=== PATIENT | female | born 1990 | race Caucasian/White ===

== ENCOUNTER 2020-03-28 13:25 | Emergency (ER) | payer SELFPAY ==
[~2020-03-28] VITALS: Ht 149 cm; Wt 88.0 kg
[~2020-03-28 13:25] MED LIST: ACHD5005 PO; CRS350T PO; CTLP20T PO; CYCL10TA9 PO; IBUPROFEN; METR500T PO; NAPR-243 PO; PHEN200T16 PO; SULF1TAB34 PO; TRM50T PO; TYLENOL
[2020-03-28] MEDS ORDERED: NS IV 1000 ML 1,000 ML IV SCH (14:00)
--- NOTE | 2020-03-28 14:09 | ED Abdominal Pain ---
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 Pt is 6 wks , and sees Dr. Hilliard OBGYN. Last serum HCG Saturday approx 10,116 and not trending up consistently. Also reports diff urinating. Sepsis Screen: No Definite Risk History of Present Illness Date Seen by Provider: March 28, 2020 Time Seen by Provider: 13:50 Initial Comments 29-year-old female presents for acute abdominal pain that began at approximately noon today. She tried to call her OB office that they were at [facility]. She presented here because the pain was not improving. She reports lower abdominal cramping, no vaginal discharge or bleeding. She is approximately [address] Hilliard, LMP was 12/29/19. She had no cycle and took 2 rounds of Clomid. He has been watching her Quant HCG, she was due for labs tomorrow. No BM for 2 days, constipation from taking Vitamin, uses Stool Softener. Had mild nausea today, no vomiting. Unsure of blood type, no previous miscarriages. Timing/Duration: 1-3 Hours Severity/Quality: Moderate Location: Suprapubic Radiation: No Radiation Associated Symptoms: Denies Symptoms Allergies and Home Medications Allergies Coded Allergies: No Known Drug Allergies (Unverified , 10/07/09) Home Medications Citalopram Hydrobromide 20 Mg Tablet, 1 EACH PO DAILY, (Reported) Cyclobenzaprine Hcl 10 Mg Tablet, 1 EACH PO Q8HR PRN Prescribed by: JENNIFER DEAN on 10/19/12 173 Hydrocodone Bit/Acetaminophen 1 Each Tablet, 1-2 EACH PO Q6H PRN Prescribed by: JENNIFER DEAN on 10/19/12 173 Naproxen 500 Mg Tablet, 1 EACH PO BID PRN Prescribed by: JENNIFER DEAN on 10/19/12 1738 Tramadol Hcl 50 Mg Tab, 50 MG PO Q4-6HOURS PRN FOR PAIN Prescribed by: JANIA TAMAYO on 10/23/12 1750 Patient Home Medication List Home Medication List Reviewed: Yes Review of Systems Review of Systems Constitutional: no symptoms reported, see HPI Gastrointestinal: See HPI, Abdominal Pain, Nausea All Other Systems Reviewed Negative Unless Noted: Yes Past Qfmsfyn-Eebaum-Lnwznj Hx Past Med/Social Hx: Reviewed Nursing Past Med/Soc Hx Patient Social History Alcohol Use: Denies Use Recreational Drug Use: No Smoking Status: Never a Smoker Recent Foreign Travel: No Contact w/Someone Who Travel: No Recent Infectious Disease Expo: No Recent Hopitalizations: No Physical Abuse: No Sexual Abuse: No Mistreated: No Fear: No Seasonal Allergies Seasonal Allergies: No Past Medical History Surgeries: No Respiratory: No Cardiac: No Neurological: No : Yes Last Menstrual Period: Dec 29, 2019 Hx : 1 Hx Para: 0 Hx Total # of Abortions (Sp): 0 Sexually Transmitted Disease: No HIV/AIDS: No Genitourinary: No Gastrointestinal: No Musculoskeletal: No Endocrine: No HEENT: No Cancer: No Psychosocial: No Integumentary: No Blood Disorders: No Physical Exam Vital Signs Vital Signs - First Documented 03/28/20 13:45 Temp 36.8 Pulse 101 Resp 18 B/P (MAP) 128/78 (95) Pulse Ox 100 Capillary Refill : Less Than 3 Seconds Height/Weight/BMI Height: '" Weight: lbs. oz. kg; 39.00 BMI Method:Stated General Appearance: WD/WN, no apparent distress Neck: non-tender, full range of motion, supple, normal inspection Respiratory: chest non-tender, lungs clear, normal breath sounds Cardiovascular: normal peripheral pulses, regular rate, rhythm Gastrointestinal: normal bowel sounds, non tender, soft; No distended, No guarding, No rebound; tenderness; No hernia, No mass Extremities: normal range of motion, non-tender, normal inspection, no calf tenderness, normal capillary refill Back: normal inspection, no CVA tenderness, no vertebral tenderness Neurologic/Psychiatric: no motor/sensory deficits, alert, normal mood/affect, oriented x 3 Skin: normal color, warm/dry Progress/Results/Core Measures Results/Orders Lab Results Laboratory Tests Test 03/28/20 14:23 Range/Units White Blood Count 10.3 4.3-11.0 10^3/uL Red Blood Count 4.53 4.35-5.85 10^6/uL Hemoglobin 13.7 11.5-16.0 G/DL Hematocrit 40 35-52 % Mean Corpuscular Volume 87 80-99 FL Mean Corpuscular Hemoglobin 30 25-34 PG Mean Corpuscular Hemoglobin Concent 35 32-36 G/DL Red Cell Distribution Width 12.8 10.0-14.5 % Platelet Count 301 130-400 10^3/uL Mean Platelet Volume 10.3 7.4-10.4 FL Neutrophils (%) (Auto) 74 42-75 % Lymphocytes (%) (Auto) 19 12-44 % Monocytes (%) (Auto) 6 0-12 % Eosinophils (%) (Auto) 1 0-10 % Basophils (%) (Auto) 0 0-10 % Neutrophils # (Auto) 7.6 1.8-7.8 X 10^3 Lymphocytes # (Auto) 1.9 1.0-4.0 X 10^3 Monocytes # (Auto) 0.6 0.0-1.0 X 10^3 Eosinophils # (Auto) 0.1 0.0-0.3 10^3/uL Basophils # (Auto) 0.0 0.0-0.1 10^3/uL Urine Color YELLOW Urine Clarity CLEAR Urine pH 5.5 5-9 Urine Specific [place] >=1.030 1.016-1.022 Urine Protein NEGATIVE NEGATIVE Urine Glucose (UA) NEGATIVE NEGATIVE Urine Ketones NEGATIVE NEGATIVE Urine Nitrite NEGATIVE NEGATIVE Urine Bilirubin NEGATIVE NEGATIVE Urine Urobilinogen 0.2 < = 1.0 MG/DL Urine Leukocyte Esterase NEGATIVE NEGATIVE Urine RBC (Auto) 1+ H NEGATIVE Urine RBC 2-5 H /HPF Urine WBC 0-2 /HPF Urine Squamous Epithelial Cells 2-5 /HPF Urine Crystals NONE /LPF Urine Bacteria FEW H /HPF Urine Casts NONE /LPF Urine Mucus NEGATIVE /LPF Urine Culture Indicated NO Sodium Level 137 135-145 MMOL/L Potassium Level 3.8 3.6-5.0 MMOL/L Chloride Level 107 98-107 MMOL/L Carbon Dioxide Level 19 L 21-32 MMOL/L Anion Gap 11 5-14 MMOL/L Blood Urea Nitrogen 8 7-18 MG/DL Creatinine 0.83 0.60-1.30 MG/DL Estimat Glomerular Filtration Rate > 60 BUN/Creatinine Ratio 10 Glucose Level 118 H 70-105 MG/DL Calcium Level 9.3 8.5-10.1 MG/DL Corrected Calcium 9.2 8.5-10.1 MG/DL Total Bilirubin 0.4 0.1-1.0 MG/DL Aspartate Amino Transf (AST/SGOT) 19 5-34 U/L Alanine Aminotransferase (ALT/SGPT) 12 0-55 U/L Alkaline Phosphatase 56 40-136 U/L Total Protein 7.4 6.4-8.2 GM/DL Albumin 4.1 3.2-4.5 GM/DL Human Chorionic Gonadotropin, Quant 9503 H <5 MIU/ML My Orders Orders - HUMA ENGELP Ua Culture If Indicated (03/28/20 13:26) Urine Bedside (03/28/20 13:26) Cbc With Automated Diff (03/28/20 14:00) Comprehensive Metabolic Panel (03/28/20 14:00) Hcg,Quantitative (03/28/20 14:00) Ed Iv/Invasive Line Start (03/28/20 14:00) Ns Iv 1000 Ml (Sodium Chloride 0.9%) (03/28/20 14:00) Acetaminophen Tablet/Caplet (Tylenol T (03/28/20 14:56) Vital Signs/I&O 03/28/20 13:45 Temp 36.8 Pulse 101 Resp 18 B/P (MAP) 128/78 (95) Pulse Ox 100 Blood Pressure Mean: 95 Progress Progress Note : Time: 13:50 Progress Note Patient seen and evaluated, will obtain labs, normal saline 1 L per IV, and Tylenol 650 mg. 1420 Spoke with Rebecca, nurse at Dr. Mcclelland, will check labs, did not recommend US at this time. Last HCG 10,116 on 03/25/20. 1515 Spoke to Rebecca, updated on lowered HCG of 9,503. They will see her in the office tomorrow and plan further care Departure Impression Primary Impression: Threatened in first trimester Additional Impression: Abdominal pain Qualified Codes: R10.9 - Unspecified abdominal pain Disposition: 01 HOME, SELF-CARE Condition: Improved Departure-Patient Inst. Decision time for Depature: 15:30 Referrals: SELF,KHUSHBU SUMMERS (PCP/Family) Primary Care Physician Patient Instructions: Threatened Miscarriage (DC), Bleeding With (DC) Add. Discharge Instructions: Appt with Dr. Mcclelland 03/29/20 at 11:00 Rest and increase hydration. Diet as tolerated. You may take Tylenol 1000 mg every 6-8 hours as needed for pain. Return to the emergency department for new, urgent health care needs. All discharge instructions reviewed with patient and/or family. Voiced understa nding. Work/School Note: Work Release Form Date Seen in the Emergency Department: March 28, 2020 Restrictions: Need Release from Doctor Copy Copies To 1: ELZA HILLIARD AMY ARNP March 28, 2020 14:09
[2020-03-28 14:42] LABS: BILIRUBIN,URINE NEGATIVE (NEGATIVE); CLARITY,URINE CLEAR; COLOR,URINE YELLOW; GLUCOSE, URINE (UA) NEGATIVE (NEGATIVE); KETONES,URINE NEGATIVE (NEGATIVE); LEUKOCYTE ESTERASE ,URINE NEGATIVE (NEGATIVE); NITRITE,URINE NEGATIVE (NEGATIVE); PH,URINE 5.5 (5-9); PROTEIN,URINE NEGATIVE (NEGATIVE)
[2020-03-28 14:45] LABS: BASOPHILS % (AUTO) 0 % (0-10); EOSINOPHILS # (AUTO) 0.1 10^3/uL (0.0-0.3); EOSINOPHILS % (AUTO) 1 % (0-10); HEMATOCRIT 40 % (35-52); HEMOGLOBIN 13.7 G/DL (11.5-16.0); LYMPHOCYTES # (AUTO) 1.9 X 10^3 (1.0-4.0); LYMPHOCYTES % (AUTO) 19 % (12-44); MEAN CORPUSCULAR HEMOGLOBIN 30 PG (25-34); MEAN CORPUSCULAR HGB CONC 35 G/DL (32-36); MEAN CORPUSCULAR VOLUME 87 FL (80-99); MEAN PLATELET VOLUME 10.3 FL (7.4-10.4); MONOCYTES # (AUTO) 0.6 X 10^3 (0.0-1.0); MONOCYTES % (AUTO) 6 % (0-12); NEUTROPHILS # (AUTO) 7.6 X 10^3 (1.8-7.8); NEUTROPHILS % (AUTO) 74 % (42-75); PLATELET COUNT 301 10^3/uL (130-400); RED CELL DISTRIBUTION WIDTH 12.8 % (10.0-14.5); WHITE BLOOD COUNT 10.3 10^3/uL (4.3-11.0)
[2020-03-28 14:51] LABS: BACTERIA,URINE FEW /HPF; WBC,URINE 0-2 /HPF
[2020-03-28] MEDS ORDERED: ACETAMINOPHEN 325 MG TABLET PO STA (14:56)
[2020-03-28 15:02] LABS: ALANINE AMINOTRANSFERASE 12 U/L (0-55); ALBUMIN 4.1 GM/DL (3.2-4.5); ALKALINE PHOSPHATASE 56 U/L (40-136); BILIRUBIN,TOTAL 0.4 MG/DL (0.1-1.0); BUN/CREATININE RATIO 10; CALCIUM 9.3 MG/DL (8.5-10.1); CARBON DIOXIDE 19 MMOL/L (21-32); CHLORIDE 107 MMOL/L (98-107); CREATININE SERUM 0.83 MG/DL (0.60-1.30); GFR ESTIMATED > 60; GLUCOSE 118 MG/DL (70-105); POTASSIUM 3.8 MMOL/L (3.6-5.0); SODIUM 137 MMOL/L (135-145); TOTAL PROTEIN 7.4 GM/DL (6.4-8.2)
[2020-03-28 15:41] VITALS: BP 133/80
--- OUTSIDE RECORDS SUMMARY | 2020-03-28 15:59 | XMS REPORT ---
Author Author Nicole GARCIA Organization [facility] Address [address] [place] [address] Care Team Providers Care Public Safety Teacher Name Role Phone TRAY GARCIA Unavailable PROBLEMS Type Condition ICD9-CM Code WDV92-DF Code Onset Dates Condition S tatus SNOMED Code Problem Amenorrhea N91.2 Active 24553210 Problem Anovulation N97.0 Active 16810084 Problem Anxiety disorder, unspecified F41.9 Active 951076073 Problem Major depressive disorder, single episode, unspecified F32.9 Active 33485274 Problem Moderate major depression F32.1 Acti ve 158956 Problem Irregular menses N92.6 Active 801 55960 ALLERGIES No Information ENCOUNTERS Encounter Location Date Diagnosis [facility] [address] [id number] [place] [address] Jan, Cough R05 [facility] [address] [id number] [place] [address] Jan, [facility] [address] [place] [id number] [address] [phone] Jan, Fever, unspecified fever cau se R50.9 and Flu-like symptoms R68.89 [facility] [address] [id number] [address] [phone] Jan, [facility] [address] [facility] [id number] [address] [phone] Jan, [facility] [address] [id number] [address] [place] [phone] Jan, [facility] [address] [id number] [address] [place] [phone] 06 Jan, 2020 Moderate major depression F3 2.1 [facility] [address] [id number] [address] [place] [phone] 24 Dec, 2019 Anovulation N97.0 [facility] [address] [facility] [id number] [address] [place] [phone] 10 Dec, 2019 Moderate major depression F3 2.1 [facility] [address] [facility] [id number] [address] [place] [phone] 03 Dec, 2019 Amenorrhea N91.2 [facility] [address] [facility] [id number] [address] [place] [phone] Nov, Right ovarian cyst N83.201 [place] [address] [address] [facility] [id number] [address] [place] [phone] 14 Nov, 2019 Pelvic pain R10.2 ; Amenorrh ea N91.2 and Well woman exam Z01.419 [place] [address] [address] [facility] [id number] [address] [place] [phone] 14 Nov, 2019 Pelvic pain R10.2 [facility] [address] [id number] [address] [place] [phone] Nov, Moderate major depression F3 2.1 [place] [address] [address] [facility] [id number] [address] [place] [phone] Nov, Well woman exam Z01.419 ; Pe lvic pain R10.2 and Amenorrhea N91.2 [place] [address] [address] [facility] [id number] [address] [place] [phone] Oct, Moderate major depression F3 2.1 and Anxiety disorder, unspecified F41.9 [facility] [address] [facility] [id number] [address] [place] [phone] Sep, Moderate major depression F3 2.1 [place] [address] [address] [facility] [id number] [address] [place] [phone] Aug, Moderate major depression F3 2.1 [facility] [address] [facility] [id number] [address] [place] [phone] Aug, [facility] [address] [facility] [id number] [address] [place] [phone] Aug, Viral gastroenteritis A08.4 [place] [address] [address] [place] [id number] [address] [place] [phone] Jul, Moderate major depression F3 2.1 [place] [address] [address] [place] [id number] [address] [place] [phone] May, Moderate major depression F3 2.1 [place] [address] [place] [id number] [place] [phone] Apr, Moderate major depression F3 2.1 [place] [address] [place] [id number] [place] [phone] Apr, Major depressive disorder, s hodan episode, unspecified F32.9 and Anxiety disorder, unspecified F41.9 [place] [address] [place] [id number] [address] [place] [phone] Feb, Moderate major depression F3 2.1 [place] [address] [place] [id number] [address] [place] [phone] Oct, [place] [address] [place] [id number] [place] [phone] Oct, Moderate major depression F3 2.1 [facility] [place] [address] [id number] [address] [place] [phone] Sep, Acute cystitis N30.00 [facility] [place] [address] [id number] [address] [place] [phone] Aug, Dysuria R30.0 and Candidiasi s of female genitalia B37.3 [facility] [place] [address] [place] [id number] [address] [place] [phone] Nov, Acute sinusitis, recurrence not specified, unspecified location J01.90 [place] [address] [address] [place] [id number] [address] [place] [phone] Oct, Major depressive disorder, s hodan episode, unspecified F32.9 and Anxiety disorder, unspecified F41.9 [facility] [address] [facility] [id number] [address] [place] [phone] Jun, Major depressive disorder, s hodan episode, unspecified F32.9 and Anxiety disorder, unspecified F41.9 [facility] [address] [facility] [id number] [address] [place] [phone] March, Anxiety disorder, unspecifie d F41.9 and Muscle spasm of back M62.830 [facility] [address] [id number] [address] [place] [phone] Jan, Abscess and cellulitis L03.9 0 [place] [address] [address] [facility] [id number] [address] [place] [phone] Dec, Anxiety disorder, unspecifie d F41.9 and Major depressive disorder, single episode, unspecified F32.9 [place] [address] [address] [facility] [id number] [address] [place] [phone] Nov, Major depressive disorder, s hodan episode, unspecified F32.9 [facility] [address] [facility] [id number] [address] [place] [phone] Nov, Pneumonia J18.9 [place] [address] [facility] [id number] [address] [place] [phone] Oct, Anxiety disorder, unspecifie d F41.9 and Major depressive disorder, single episode, unspecified F32.9 [place] [address] [address] [facility] [id number] [address] [place] [phone] Oct, Major depressive disorder, s hodan episode, unspecified F32.9 and Anxiety disorder, unspecified F41.9 [place] [address] [address] [facility] [id number] [address] [place] [phone] Oct, Major depressive disorder, s hodan episode, unspecified F32.9 and Anxiety disorder, unspecified F41.9 [place] [address] [address] [facility] [id number] [address] [place] [phone] Oct, Major depressive disorder, s hodan episode, unspecified F32.9 and Anxiety disorder, unspecified F41.9 [facility] [address] [facility] [id number] [address] [place] [phone] Sep, Anxiety disorder, unspecifie d F41.9 [facility] [address] [facility] [id number] [address] [place] [phone] Aug, Sore throat J02.9 [facility] [address] [facility] [id number] [address] [place] [phone] Aug, Anxiety disorder, unspecifie d F41.9 [facility] [address] [facility] [id number] [address] [place] [phone] Aug, Major depressive disorder, s hodan episode, unspecified F32.9 and Anxiety disorder, unspecified F41.9 [facility] [address] [facility] [id number] [address] [place] [phone] Aug, Major depressive disorder, s hodan episode, unspecified F32.9 [facility] [address] [facility] [id number] [address] [place] [phone] Jul, Depressive disorder, not els ewhere classified 311 and Anxiety state, unspecified 300.00 [facility] [address] [facility] [id number] [address] [place] [phone] Jul, Depressive disorder, not els ewhere classified 311 and Anxiety state, unspecified 300.00 [facility] [address] [facility] [id number] [address] [place] [phone] Jul, [facility] [address] [facility] [id number] [address] [place] [phone] Jul, [facility] [address] [facility] [id number] [address] [place] [phone] Jul, [facility] [address] [facility] [id number] [address] [place] [phone] Jun, [facility] [address] [id number] [address] [place] [phone] Jun, Depressive disorder, not els ewhere classified 311 and Anxiety state, unspecified 300.00 [facility] [address] [id number] [address] [place] [phone] May, Anxiety state, unspecified 3 00.00 [facility] [address] [id number] [address] [place] [phone] May, Anxiety state, unspecified 3 00.00 [facility] [address] [id number] [address] [place] [phone] Apr, [facility] [address] [id number] [address] [place] [phone] Apr, Anxiety state 300.00 [facility] [address] [facility] [id number] [address] [place] [phone] Apr, Anxiety state, unspecified 3 00.00 [facility] [address] [id number] [address] [place] [id number] Apr, Pharyngitis 462 and Oral thr ush 112.0 [facility] [address] [id number] [address] [place] [phone] Feb, [facility] [address] [facility] [id number] [address] [place] [phone] Feb, [facility] [address] [id number] [address] [place] [phone] Jun, [facility] [address] [id number] [address] [place] [phone] Jun, [facility] [address] [facility] [id number] [address] [place] [phone] Nov, [facility] [address] [id number] [address] [place] [phone] Nov, [facility] [address] [facility] [id number] [address] [place] [phone] Nov, [facility] [address] [id number] [address] [place] [address], [place] [phone] Nov, [facility] [address] [id number] [address] [place] [address], [place] [phone] Oct, [facility] [address] [id number] [address] [place] [address], [place] [phone] Oct, [facility] [address] [id number] [address] [place] [address], [place] [phone] Oct, [facility] [address] [id number] [address] [place] [address], [place] [id number] Oct, [facility] [address] [id number] [address] [place] [address], [place] [phone] Oct, [facility] [address] [id number] [address] [place] [address], [place] [phone] Oct, [facility] [address] [id number] [address] [place] [address], [place] [id number] Feb, [facility] [address] [id number] [address] [place] [address], [place] [phone] Jan, [facility] [address] [id number] [address] [place] [address], [place] [phone] Jan, [facility] [address] [id number] [address] [place] [address], [place] [phone] Dec, [facility] [address] [id number] [address] [place] [address], [place] [id number] Aug, [facility] [address] [id number] [address] [place] [address], [place] [phone] Jun, [facility] [address] [id number] [address] [place] [address], [place] [id number] Feb, [facility] [address] [id number] [address] [place] [address], [place] [phone] Jan, [facility] [address] [id number] [address] [phone] Jan, [facility] [address] [id number] [address] [phone] Dec, [facility] [address] [id number] [address] [place] [phone] Oct, [facility] [address] [id number] [address] [place] [phone] Jun, [facility] [address] [id number] [address] [place] [phone] Aug, [facility] [address] [id number] [address] [phone] Jul, [facility] [address] [id number] [address] [phone] Jun, [facility] [address] [id number] [address] [phone] Apr, [facility] [address] [id number] [address] [phone] Sep, [facility] [address] [id number] [address] [place] [phone] Jan, IMMUNIZATIONS No Known Immunizations SOCIAL HISTORY Never Assessed REASON FOR VISIT PLAN OF CARE VITAL SIGNS MEDICATIONS Unknown Medications RESULTS No Results PROCEDURES No Known procedures INSTRUCTIONS MEDICATIONS ADMINISTERED No Known Medications MEDICAL (GENERAL) HISTORY Type Description Date Medical History PCOS (Polycystic Ovary Syndrome) Medical History depression Medical History anxiety Medical History attention deficit hyperactivity disorder Medical History wisdom teeth removal Surgical History wisdom teeth removal 02/2019
--- OUTSIDE RECORDS SUMMARY | 2020-03-28 16:00 | XMS REPORT ---
Author Author Nicole Enrique Organization [facility] Address [address] [place] [address] Care Team Providers Care Paper Wood Cutter Name Role Phone almaCECEKIMBERLEE RYAN Unavailable PROBLEMS Type Condition ICD9-CM Code XKY23-QO Code Onset Dates Condition S tatus SNOMED Code Problem Major depressive disorder, single episode, unspecified F32.9 Active 37987286 Problem Anxiety disorder, unspecified F41.9 Active [id number] ALLERGIES No Known Allergies ENCOUNTERS Encounter Location Date Diagnosis [facility] [address] [address] Sep, Acute cystitis N30.00 [facility] [address] [address] Aug, Dysuria R30.0 and Candidiasi s of female genitalia B37.3 [facility] [address] [address] Nov, Acute sinusitis, recurrence not specified, unspecified location J01.90 [place] [address] [address] Oct, Major depressive disorder, s hodan episode, unspecified F32.9 and Anxiety disorder, unspecified F41.9 [place] [address] [address] [place] [id number] [address] [place] [address] Jun, Major depressive disorder, s hodan episode, unspecified F32.9 and Anxiety disorder, unspecified F41.9 [place] [address] [address] [place] [id number] [address] [place] [address] March, Anxiety disorder, unspecifie d F41.9 and Muscle spasm of back M62.830 [facility] [address] [facility] [id number] [address] [place] [address] Jan, Abscess and cellulitis L03.9 0 [facility] [address] [facility] [id number] [address] [place] [address] Dec, Anxiety disorder, unspecifie d F41.9 and Major depressive disorder, single episode, unspecified F32.9 [place] [address] [address] [facility] [id number] [address] [place] [address] Nov, Major depressive disorder, s hodan episode, unspecified F32.9 [facility] [address] [facility] [id number] [address] [place] [address] Nov, Pneumonia J18.9 [place] [address] [address] [facility] [id number] [address] [place] [address] Oct, Anxiety disorder, unspecifie d F41.9 and Major depressive disorder, single episode, unspecified F32.9 [place] [address] [address] [facility] [id number] [address] [place] [address] Oct, Major depressive disorder, s hodan episode, unspecified F32.9 and Anxiety disorder, unspecified F41.9 [place] [address] [address] [facility] [id number] [address] [place] [address] Oct, Major depressive disorder, s hodan episode, unspecified F32.9 and Anxiety disorder, unspecified F41.9 [place] [address] [address] [facility] [id number] [address] [place] [address] Oct, Major depressive disorder, s hodan episode, unspecified F32.9 and Anxiety disorder, unspecified F41.9 [place] [address] [address] [facility] [id number] [address] [place] [address] Sep, Anxiety disorder, unspecifie d F41.9 [place] [id number] [facility] [id number] [address] [place] [address] Aug, Sore throat J02.9 [facility] [address] [id number] [address] [place] [address] Aug, Anxiety disorder, unspecifie d F41.9 [facility] [place] [address] [id number] [address] [place] [address] Aug, Major depressive disorder, s hodan episode, unspecified F32.9 and Anxiety disorder, unspecified F41.9 [facility] [address] [id number] [address] [place] [address] Aug, Major depressive disorder, s hodan episode, unspecified F32.9 [facility] [place] [address] [id number] [address] [place] [address] Jul, Depressive disorder, not els ewhere classified 311 and Anxiety state, unspecified 300.00 [facility] [place] [address] [id number] [address] [place] [address] Jul, Depressive disorder, not els ewhere classified 311 and Anxiety state, unspecified 300.00 [facility] [place] [address] [id number] [address] [place] [address] Jul, [facility] [place] [address] [id number] [address] [place] [address] Jul, [facility] [place] [address] [id number] [address] [place] [address] Jul, [facility] [place] [address] [facility] [id number] [address] [place] [address] Jun, [facility] [place] [address] [id number] [address] [place] [address] Jun, Depressive disorder, not els ewhere classified 311 and Anxiety state, unspecified 300.00 [facility] [place] [address] [id number] [address] [place] [address] May, Anxiety state, unspecified 3 00.00 [facility] [place] [address] [id number] [address] [place] [address] May, Anxiety state, unspecified 3 00.00 [facility] [address] [id number] [address] [place] [address] Apr, [facility] [address] [id number] [address] [place] [address] Apr, Anxiety state 300.00 [facility] [address] [id number] [address] [place] [address] Apr, Anxiety state, unspecified 3 00.00 [facility] [address] [id number] [address] [place] [address] 17 Apr, 2015 Pharyngitis 462 and Oral thr ush 112.0 [facility] [address] [id number] [address] [place] [address] Feb, [facility] [address] [id number] [address] [place] [address] Feb, [facility] [address] [id number] [address] [place] [address] Jun, [facility] [address] [id number] [address] [place] [address] Jun, [facility] [address] [id number] [address] [place] [address] Nov, [facility] [address] [id number] [address] [place] [address] Nov, [facility] [address] [id number] [address] [place] [address] Nov, [facility] [address] [id number] [address] [place] [address] Nov, [facility] [address] [id number] [address] [place] [address] Oct, [facility] [address] [id number] [address] [place] [address] Oct, [facility] [address] [id number] [address] [place] [address] Oct, [facility] [address] [id number] [address] [place] [address], [place] [address] Oct, [facility] [address] [id number] [address] [place] [address], [place] [address] Oct, [facility] [address] [id number] [address] [place] [address], [place] [address] Oct, [facility] [address] [id number] [address] [place] [address], [place] [address] Feb, [facility] [address] [id number] [address] [place] [address], [place] [address] Jan, [facility] [address] [id number] [address] [place] [address], [place] [address] Jan, [facility] [address] [id number] [address] [place] [address], [place] [address] Dec, [facility] [address] [id number] [address] [place] [address], [place] [address] Aug, [facility] [address] [id number] [address] [place] [address], [place] [address] Jun, [facility] [address] [id number] [address] [place] [address], [place] [address] Feb, [facility] [address] [id number] [address] [place] [address], [place] [address] Jan, [facility] [address] [id number] [address] [place] [address], [place] [address] Jan, [facility] [address] [id number] [address] [place] [address], [place] [address] Dec, [facility] [address] [id number] [address] [place] [address], [place] [address] Oct, [facility] [address] [id number] [address] [place] [address], [place] [address] Jun, [facility] [place] [address] [facility] [id number] [address] [place] [address] Aug, [facility] [place] [address] [facility] [id number] [address] [place] [address] Jul, [facility] [place] [address] [facility] [id number] [address] [place] [address] Jun, [facility] [place] [address] [facility] [id number] [address] [place] [address] Apr, [facility] [place] [address] [facility] [id number] [address] [place] [address] Sep, [facility] [place] [address] [facility] [id number] [address] [place] [address] Jan, IMMUNIZATIONS No Known Immunizations SOCIAL HISTORY Never Assessed REASON FOR VISIT itching, burning and urinary frequency x1 week JStrasserRN PLAN OF CARE Activity Details Follow Up prn Reason: VITAL SIGNS Height 59 in 2017-09-06 Weight 195.6 lbs 2017-09-06 Temperature 97.5 degrees Fahrenheit 2017-09-06 Heart Rate 98 bpm 2017-09-06 Respiratory Rate 20 2017-09-06 BMI 39.50 kg/m2 2017-09-06 Blood pressure systolic 110 mmHg 2017-09-06 Blood pressure diastolic 80 mmHg 2017-09-06 MEDICATIONS Medication Instructions Dosage Frequency Start Date End Date Duration S tatus Diflucan 150 MG Orally Once a day 1 tablet now, repeat in 72 hours if symptoms persist 24h Aug, Aug, 3 days Active RESULTS Name Result Date Reference Range UA LONG DIP (IN HOUSE) 2017-09-06 Lot # [id number] Exp date 2018-10-10 Clarity cloudy Color yellow Odor none GLU negative KENTRELL negative KET negative SG 1.025 BLO trace-intact pH 7.5 Protein negative URO 0.2 NIT negative ALETHA 1+ Lot # [id number] Exp date February 2018 CULTURE, URINE 2017-09-06 Urine Culture, Routine Final report Result 1 Staphylococcus aureus Antimicrobial Susceptibility PROCEDURES Procedure Date Ordered Result Body Site URINALYSIS, AUTO, W/O SCOPE Sep 06, 2017 URINE CULTURE/COLONY COUNT Sep 06, 2017 INSTRUCTIONS MEDICATIONS ADMINISTERED No Known Medications MEDICAL (GENERAL) HISTORY Type Description Date Medical History PCOS (Polycystic Ovary Syndrome) Medical History depression Medical History anxiety Medical History attention deficit hyperactivity disorder
--- OUTSIDE RECORDS SUMMARY | 2020-03-28 16:00 | XMS REPORT ---
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 Name Role Phone Migration, Doctor Unavailable Unavailable PROBLEMS Type Condition ICD9-CM Code VSZ23-WK Code Onset Dates Condition S tatus SNOMED Code Problem Major depressive disorder, single episode, unspecified F32.9 Active 49091018 Problem Moderate major depression F32.1 Acti ve 694582 Problem Anxiety disorder, unspecified F41.9 Active [id number] ALLERGIES No Information ENCOUNTERS Encounter Location Date Diagnosis [place] [address] [address] Apr, [facility] [address] [address] Feb, Moderate major depression F3 2.1 [facility] [address] [address] Oct, [facility] [address] [address] Oct, Moderate major depression F3 2.1 [facility] [address] [address] Sep, Acute cystitis N30.00 [facility] [place] [id number] [address] [place] [address] Aug, Dysuria R30.0 and Candidiasi s of female genitalia B37.3 [facility] [place] [address] [address] [place] [id number] [address] [place] [address] Nov, Acute sinusitis, recurrence not specified, unspecified location J01.90 [facility] [address] [place] [id number] [address] [place] [address] Oct, Major depressive disorder, s hodan episode, unspecified F32.9 and Anxiety disorder, unspecified F41.9 [facility] [address] [id number] [address] [place] [address] Jun, Major depressive disorder, s hodan episode, unspecified F32.9 and Anxiety disorder, unspecified F41.9 [facility] [address] [id number] [address] [place] [address] March, Anxiety disorder, unspecifie d F41.9 and Muscle spasm of back M62.830 [facility] [address] [id number] [address] [place] [address] Jan, Abscess and cellulitis L03.9 0 [place] [address] [id number] [address] [place] [address] Dec, Anxiety disorder, unspecifie d F41.9 and Major depressive disorder, single episode, unspecified F32.9 [place] [address] [address] [facility] [id number] [address] [place] [address] Nov, Major depressive disorder, s hodan episode, unspecified F32.9 [facility] [address] [facility] [id number] [address] [place] [address] Nov, Pneumonia J18.9 [facility] [address] [facility] [id number] [address] [place] [address] Oct, Anxiety disorder, unspecifie d F41.9 and Major depressive disorder, single episode, unspecified F32.9 [place] [address] [id number] [address] [place] [address] Oct, Major depressive disorder, s hodan episode, unspecified F32.9 and Anxiety disorder, unspecified F41.9 [place] [address] [address] [facility] [id number] [address] [place] [address] Oct, Major depressive disorder, s hodan episode, unspecified F32.9 and Anxiety disorder, unspecified F41.9 [place] 9156[address] N [facility] [id number] [address] [place] [address] Oct, Major depressive disorder, s hodan episode, unspecified F32.9 and Anxiety disorder, unspecified F41.9 [facility] [address] [facility] [id number] [address] [place] [address] Sep, Anxiety disorder, unspecifie d F41.9 [facility] [address] [facility] [id number] [address] [place] [address] Aug, Sore throat J02.9 [facility] [address] [facility] [id number] [address] [place] [address] Aug, Anxiety disorder, unspecifie d F41.9 [facility] [address] [facility] [id number] [address] [place] [address] Aug, Major depressive disorder, s hodan episode, unspecified F32.9 and Anxiety disorder, unspecified F41.9 [facility] [address] [facility] [id number] [address] [place] [address] Aug, Major depressive disorder, s hodan episode, unspecified F32.9 [facility] [address] [facility] [id number] [address] [place] [address] Jul, Depressive disorder, not els ewhere classified 311 and Anxiety state, unspecified 300.00 [facility] [address] [facility] [id number] [address] [place] [address] Jul, Depressive disorder, not els ewhere classified 311 and Anxiety state, unspecified 300.00 [facility] [address] [id number] [address] [place] [address] Jul, [facility] [address] [id number] [address] [place] [address] Jul, [facility] [address] [facility] [id number] [address] [place] [address] Jul, [facility] [address] [facility] [id number] [address] [place] [address] Jun, [facility] [address] [id number] [address] [place] [address] Jun, Depressive disorder, not els ewhere classified 311 and Anxiety state, unspecified 300.00 [facility] [address] [id number] [address] [place] [address] May, Anxiety state, unspecified 3 00.00 [facility] [address] [id number] [address] [place] [address] May, Anxiety state, unspecified 3 00.00 [facility] [address] [id number] [address] [place] [address] Apr, [facility] [address] [id number] [address] [place] [address] Apr, Anxiety state 300.00 [facility] [address] [id number] [address] [place] [address] Apr, Anxiety state, unspecified 3 00.00 [facility] [address] [id number] [address] [place] [address] Apr, Pharyngitis 462 and Oral thr ush 112.0 [facility] [address] [id number] [address] [place] [address] Feb, [facility] [address] [id number] [address] [place] [address] Feb, [facility] [address] [id number] [address] [place] [address] Jun, [facility] [address] [id number] [address] [place] [address] Jun, [facility] [address] [id number] [address] [place] [address] Nov, [facility] [address] [id number] [address] [place] [address] Nov, [facility] [address] [id number] [address] [place] [address] Nov, [facility] [address] [id number] [address] [place] [address], [place] [address] Nov, [facility] [address] [id number] [address] [place] [address], [place] [address] Oct, [facility] [address] [id number] [address] [place] [address], [place] [address] Oct, [facility] [address] [id number] [address] [place] [address], [place] [address] Oct, [facility] [address] [id number] [address] [place] [address], [place] [address] Oct, [facility] [address] [id number] [address] [place] [address], [place] [address] Oct, [facility] [address] [id number] [address] [place] [address], [place] [address] Oct, [facility] [address] [id number] [address] [place] [address], [place] [address] Feb, [facility] [address] [id number] [address] [place] [address], [place] [address] Jan, [facility] [address] [id number] [address] [place] [address], [place] [address] Jan, [facility] [address] [id number] [address] [place] [address], [place] [address] Dec, [facility] [address] [id number] [address] [place] [address], [place] [address] Aug, [facility] [address] [id number] [address] [place] [address], [place] [address] Jun, [facility] [address] [id number] [address] [place] [address], [place] [address] Feb, [facility] [address] [id number] [address] [place] [address], [place] [address] Jan, [facility] [address] [id number] [address] [place] [id number] Jan, [facility] [address] [id number] [address] [place] [id number] Dec, [facility] [address] [id number] [address] [place] [id number] Oct, [facility] [address] [id number] [address] [place] [id number] Jun, [facility] [address] [id number] [address] [place] [id number] Aug, [facility] [address] [id number] [address] [place] [id number] 16 Jul, 2010 [facility] [address] [id number] [address] [place] [phone] Jun, [facility] [address] [id number] [address] [place] [id number] Apr, [facility] [address] [id number] [address] [place] [id number] Sep, [facility] [address] [id number] [address] [place] [id number] 10 Jan, 2009 IMMUNIZATIONS No Known Immunizations SOCIAL HISTORY Never Assessed [place]ASON [place] [place] V[place] SIGNS MEDICATIONS Unknown Medications RESULTS No Results PROCEDURES No Known procedures INSTRUCTIONS MEDICATIONS ADMINISTERED No Known Medications MEDICAL (GENERAL) HISTORY Type Description Date Medical History PCOS (Polycystic Ovary Syndrome) Medical History depression Medical History anxiety Medical History attention deficit hyperactivity disorder
--- OUTSIDE RECORDS SUMMARY | 2020-03-28 16:00 | XMS REPORT ---
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1 [facility] [address] [address] Oct, [facility] [address] [address] Oct, Moderate major depression F3 2.1 [facility] [address] [address] Sep, Acute cystitis N30.00 [facility] [address] [place] [id number] [place] [address] Aug, Dysuria R30.0 and Candidiasi s of female genitalia B37.3 [facility] [address] [place] [id number] [address] [place] [address] Nov, Acute sinusitis, recurrence not specified, unspecified location J01.90 [facility] [address] [place] [id number] [address] [place] [address] Oct, Major depressive disorder, s hodan episode, unspecified F32.9 and Anxiety disorder, unspecified F41.9 [facility] [address] [id number] [address] [place] [address] Jun, Major depressive disorder, s hodan episode, unspecified F32.9 and Anxiety disorder, unspecified F41.9 [facility] [address] [id number] [address] [place] [address] March, Anxiety disorder, unspecifie d F41.9 and Muscle spasm of back M62.830 [facility] [address] [id number] [address] [place] [address] Jan, Abscess and cellulitis L03.9 [address] [place] [address] [id number] [address] [place] [address] Dec, Anxiety disorder, unspecifie d F41.9 and Major depressive disorder, single episode, unspecified F32.9 [place] [address] [facility] [id number] [address] [place] [address] Nov, Major depressive disorder, s hodan episode, unspecified F32.9 [facility] [address] [facility] [id number] [address] [place] [address] Nov, Pneumonia J18.9 [facility] [address] [facility] [id number] [address] [place] [address] Oct, Anxiety disorder, unspecifie d F41.9 and Major depressive disorder, single episode, unspecified F32.9 [place] [address] [id number] [address] [place] [address] Oct, Major depressive disorder, s hodan episode, unspecified F32.9 and Anxiety disorder, unspecified F41.9 [place] [address] [facility] [id number] [address] [place] [address] Oct, Major depressive disorder, s hodan episode, unspecified F32.9 and Anxiety disorder, unspecified F41.9 [place] [address] [facility] [id number] [address] [place] [address] Oct, Major depressive disorder, s hodan episode, unspecified F32.9 and Anxiety disorder, unspecified F41.9 [facility] [address] [facility] [id number] [address] [place] [address] Sep, Anxiety disorder, unspecifie d F41.9 [facility] [address] [facility] [id number] [address] [place] [address] Aug, Sore throat J02.9 [facility] [address] [facility] [id number] [address] [place] [address] Aug, Anxiety disorder, unspecifie d F41.9 [facility] [address] [facility] [id number] [address] [place] [address] Aug, Major depressive disorder, s hodan episode, unspecified F32.9 and Anxiety disorder, unspecified F41.9 [facility] [address] [facility] [id number] [address] [place] [address] Aug, Major depressive disorder, s hodan episode, unspecified F32.9 [facility] [address] [facility] [id number] [address] [place] [address] Jul, Depressive disorder, not els ewhere classified 311 and Anxiety state, unspecified 300.00 [facility] [address] [facility] [id number] [address] [place] [address] Jul, Depressive disorder, not els ewhere classified 311 and Anxiety state, unspecified 300.00 [facility] [address] [id number] [address] [place] [address] Jul, [facility] [address] [id number] [address] [place] [address] Jul, [facility] [address] [facility] [id number] [address] [place] [address] Jul, [facility] [address] [facility] [id number] [address] [place] [address] Jun, [facility] [address] [id number] [address] [place] [address] Jun, Depressive disorder, not els ewhere classified 311 and Anxiety state, unspecified 300.00 [facility] [address] [id number] [address] [place] [address] May, Anxiety state, unspecified 3 00.00 [facility] [address] [id number] [address] [place] [address] May, Anxiety state, unspecified 3 00.00 [facility] [address] [id number] [address] [place] [address] Apr, [facility] [address] [id number] [address] [place] [address] Apr, Anxiety state 300.00 [facility] [address] [id number] [address] [place] [address] Apr, Anxiety state, unspecified 3 00.00 [facility] [address] [id number] [address] [place] [address] Apr, Pharyngitis 462 [address] Oral thr ush 112.0 [facility] [address] [id number] [address] [place] [address] Feb, [facility] [address] [id number] [address] [place] [address] Feb, [facility] [address] [id number] [address] [place] [address] Jun, [facility] [address] [id number] [address] [place] [address] Jun, [facility] [address] [id number] [address] [place] [address] Nov, [facility] [address] [id number] [address] [place] [address] Nov, [facility] [address] [id number] [address] [place] [address] Nov, [facility] [address] [id number] [address] [place] [address], [place] [address] Nov, [facility] [address] [id number] [address] [place] [address], [place] [address] Oct, [facility] [address] [id number] [address] [place] [address], [place] [address] Oct, [facility] [address] [id number] [address] [place] [address], [place] [address] Oct, [facility] [address] [id number] [address] [place] [address], [place] [address] Oct, [facility] [address] [id number] [address] [place] [address], [place] [address] Oct, [facility] [address] [id number] [address] [place] [address], [place] [address] Oct, [facility] [address] [id number] [address] [place] [address], [place] [address] Feb, [facility] [address] [id number] [address] [place] [address], [place] [address] Jan, [facility] [address] [id number] [address] [place] [address], [place] [address] Jan, [facility] [address] [id number] [address] [place] [address], [place] [address] Dec, [facility] [address] [id number] [address] [place] [address], [place] [address] Aug, [facility] [address] [id number] [address] [place] [address], [place] [address] Jun, [facility] [address] [id number] [address] [place] [address], [place] [address] Feb, [facility] [address] [id number] [address] [place] [address], [place] [address] Jan, [facility] [address] [id number] [address] [place] [address] Jan, [facility] [address] [id number] [address] [place] [address] Dec, [facility] [address] [id number] [address] [place] [address] Oct, [facility] [address] [id number] [address] [place] [address] Jun, [facility] [address] [id number] [address] [place] [address] Aug, [facility] [address] [id number] [address] [place] [phone] 16 Jul, 2010 [facility] [address] [id number] [address] [place] [address] Jun, [facility] [address] [id number] [address] [place] [address] Apr, [facility] [address] [id number] [address] [place] [address] Sep, [facility] [address] [id number] [address] [place] [address] 10 Jan, 2009 IMMUNIZATIONS No Known Immunizations SOCIAL HISTORY Never Assessed REASON FOR VISIT [facility] PLAN OF CARE VITAL SIGNS MEDICATIONS Unknown Medications RESULTS No Results PROCEDURES No Known procedures INSTRUCTIONS MEDICATIONS ADMINISTERED No Known Medications MEDICAL (GENERAL) HISTORY Type Description Date Medical History PCOS (Polycystic Ovary Syndrome) Medical History depression Medical History anxiety Medical History attention deficit hyperactivity disorder
--- OUTSIDE RECORDS SUMMARY | 2020-03-28 16:00 | XMS REPORT ---
Author Author Nicole GARCIA Organization [facility] Address [address] [place] [address] Care Team Providers Care Furniture Packer Name Role Phone TRAY GARCIA Unavailable PROBLEMS Type Condition ICD9-CM Code [id number] Code Onset Dates Condition S tatus SNOMED Code Problem Major depressive disorder, single episode, unspecified F32.9 Active [id number] Problem Moderate major depression F32.1 Acti ve 816920 Problem Anxiety disorder, unspecified F41.9 Active [id number] ALLERGIES No Information ENCOUNTERS Encounter Location Date Diagnosis [facility] [address] [place] [id number] [address] [place] [address] May, Moderate major depression F3 2.1 [facility] [address] [facility] [id number] [address] [place] [address] Apr, Moderate major depression F3 2.1 [facility] [address] [facility] [id number] [address] [place] [address] Apr, Major depressive disorder, s hodan episode, unspecified F32.9 and Anxiety disorder, unspecified F41.9 [facility] [address] [facility] [id number] [address] [place] [address] Feb, Moderate major depression F3 2.1 [facility] [address] [facility] [id number] [address] [place] [address] Oct, [facility] [address] [place] [id number] [address] [place] [address] Oct, Moderate major depression F3 2.1 [facility] [address] [facility] [id number] [address] [place] [address] Sep, Acute cystitis N30.00 [facility] [address] [place] [id number] [address] [place] [address] Aug, Dysuria R30.0 and Candidiasi s of female genitalia B37.3 [facility] [address] [place] [id number] [address] [place] [address] Nov, Acute sinusitis, recurrence not specified, unspecified location J01.90 [place] [address] [place] [id number] [address] [place] [address] Oct, Major depressive disorder, s hodan episode, unspecified F32.9 and Anxiety disorder, unspecified F41.9 [place] [address] [address] Jun, Major depressive disorder, s hodan episode, unspecified F32.9 and Anxiety disorder, unspecified F41.9 [place] [address] [address] March, Anxiety disorder, unspecifie d F41.9 and Muscle spasm of back M62.830 [facility] [address] [place] [id number] [address] [place] [address] Jan, Abscess and cellulitis L03.9 [address] [place] [address] [place] [id number] [place] [address] Dec, Anxiety disorder, unspecifie d F41.9 and Major depressive disorder, single episode, unspecified F32.9 [place] [address] [place] [id number] [address] [place] [address] Nov, Major depressive disorder, s hodan episode, unspecified F32.9 [facility] [address] [place] [id number] [address] [place] [address] Nov, Pneumonia J18.9 [place] [address] [place] [id number] [address] [place] [address] Oct, Anxiety disorder, unspecifie d F41.9 and Major depressive disorder, single episode, unspecified F32.9 [facility] [address] [id number] [address] [place] [address] Oct, Major depressive disorder, s hodan episode, unspecified F32.9 and Anxiety disorder, unspecified F41.9 [facility] [address] [facility] [id number] [address] [place] [address] Oct, Major depressive disorder, s hodan episode, unspecified F32.9 and Anxiety disorder, unspecified F41.9 [facility] [address] [facility] [id number] [address] [place] [address] Oct, Major depressive disorder, s hodan episode, unspecified F32.9 and Anxiety disorder, unspecified F41.9 [place] [address] [facility] [id number] [address] [place] [address] Sep, Anxiety disorder, unspecifie d F41.9 [place] [address] [facility] [id number] [address] [place] [address] Aug, Sore throat J02.9 [place] [address] [facility] [id number] [address] [place] [address] Aug, Anxiety disorder, unspecifie d F41.9 [place] [address] [facility] [id number] [address] [place] [address] Aug, Major depressive disorder, s hodan episode, unspecified F32.9 and Anxiety disorder, unspecified F41.9 [place] [address] [facility] [id number] [address] [place] [address] Aug, Major depressive disorder, s hodan episode, unspecified F32.9 [place] [address] [facility] [id number] [address] [place] [address] Jul, Depressive disorder, not els ewhere classified 311 and Anxiety state, unspecified 300.00 [facility] [address] [facility] [id number] [address] [place] [address] Jul, Depressive disorder, not els ewhere classified 311 and Anxiety state, unspecified 300.00 [facility] [address] [id number] [address] [place] [address] 18 Jul, 2015 [facility] [address] [id number] [address] [place] [address] Jul, [facility] [address] [id number] [address] [place] [address] Jul, [facility] [address] [id number] [address] [place] [address] Jun, [facility] [address] [id number] [address] [place] [address] Jun, Depressive disorder, not els ewhere classified 311 and Anxiety state, unspecified 300.00 [facility] [address] [id number] [address] [place] [address] May, Anxiety state, unspecified 3 00.00 [facility] [address] [facility] [id number] [address] [place] [address] May, Anxiety state, unspecified 3 00.00 [facility] [address] [id number] [address] [place] [address] Apr, [facility] [address] [facility] [id number] [address] [place] [address] Apr, Anxiety state 300.00 [facility] [address] [id number] [address] [place] [address] Apr, Anxiety state, unspecified 3 00.00 [facility] [address] [id number] [address] [place] [address] Apr, Pharyngitis 462 [address] Oral thr ush 112.0 [facility] [address] [id number] [address] [place] [address] 14 Feb, 2015 [facility] [address] [facility] [id number] [address] [place] [address] Feb, [facility] [address] [facility] [id number] [address] [place] [address] Jun, [facility] [address] [id number] [address] [place] [address], [place] [address] Jun, [facility] [address] [id number] [address] [place] [address], [place] [address] Nov, [facility] [address] [id number] [address] [place] [address], [place] [address] Nov, [facility] [address] [id number] [address] [place] [address], [place] [address] Nov, [facility] [address] [id number] [address] [place] [address], [place] [address] Nov, [facility] [address] [id number] [address] [place] [address], [place] [address] Oct, [facility] [address] [id number] [address] [place] [address], [place] [address] Oct, [facility] [address] [id number] [address] [place] [address], [place] [address] Oct, [facility] [address] [id number] [address] [place] [address], [place] [address] Oct, [facility] [address] [id number] [address] [place] [address], [place] [address] Oct, [facility] [address] [id number] [address] [place] [address], [place] [address] Oct, [facility] [address] [id number] [address] [place] [address], [place] [address] Feb, [facility] [address] [id number] [address] [place] [address], [place] [address] Jan, [facility] [address] [id number] [address] [place] [address], [place] [address] Jan, [facility] [address] [id number] [address] [place] [address], [place] [address] Dec, [facility] [address] [id number] [address] [place] [address] Aug, [facility] [address] [id number] [address] [place] [address] Jun, [facility] [address] [id number] [address] [place] [address] Feb, [facility] [address] [id number] [address] [place] [address] Jan, [facility] [address] [id number] [address] [place] [address] Jan, [facility] [address] [id number] [address] [place] [address] Dec, [facility] [address] [id number] [address] [place] [address] Oct, [facility] [address] [id number] [address] [place] [address] Jun, [facility] [address] [id number] [address] [place] [id number] Aug, [facility] [address] [id number] [address] [place] [phone] Jul, [facility] [address] [id number] [address] [place] [phone] Jun, [facility] [address] [id number] [address] [place] [phone] Apr, [facility] [address] [id number] [address] [place] [phone] Sep, [facility] [address] [id number] [address] [place] [phone] 10 Jan, 2009 IMMUNIZATIONS No Known Immunizations [...]
--- OUTSIDE RECORDS SUMMARY | 2020-03-28 16:00 | XMS REPORT ---
Author Author Nicole LARA Organization [facility] Address [address] [place] [address] Care Team Providers Care Solid Waste Collection Worker Name Role Phone PATRICK LARA Unavailable PROBLEMS Type Condition ICD9-CM Code NRH90-GU Code Onset Dates Condition S tatus SNOMED Code Problem Moderate major depression F32.1 Acti ve 426477 Problem Major depressive disorder, single episode, unspecified F32.9 Active 98890631 Problem Anxiety disorder, unspecified F41.9 Active 627913149 ALLERGIES No Known Allergies ENCOUNTERS Encounter Location Date Diagnosis [address] [address] Oct, [facility] [address] [address] Oct, Moderate major depression F3 2.1 [facility] WALK IN [address] [address] Sep, Acute cystitis N30.00 [facility] [address] [address] Aug, Dysuria R30.0 and Candidiasi s of female genitalia B37.3 [facility] WALK IN [facility] [address] [address] Nov, Acute sinusitis, recurrence not specified, unspecified location J01.[address] [address] Oct, Major depressive disorder, s hodan episode, unspecified F32.9 and Anxiety disorder, unspecified F41.9 [place] [address] [address] Jun, Major depressive disorder, s hodan episode, unspecified F32.9 and Anxiety disorder, unspecified F41.9 [place] [address] [facility] [id number] [address] [place] [address] March, Anxiety disorder, unspecifie d F41.9 and Muscle spasm of back M62.830 [facility] [address] [id number] [address] [place] [address] Jan, Abscess and cellulitis L03.9 0 [place] [address] [id number] [address] [place] [address] Dec, Anxiety disorder, unspecifie d F41.9 and Major depressive disorder, single episode, unspecified F32.9 [place] [address] [facility] [id number] [address] [place] [address] Nov, Major depressive disorder, s hodan episode, unspecified F32.9 [facility] WALK IN [facility] [address] [facility] [id number] [address] [place] [address] Nov, Pneumonia J18.9 [place] [address] [facility] [id number] [address] [place] [address] Oct, Anxiety disorder, unspecifie d F41.9 and Major depressive disorder, single episode, unspecified F32.9 [place] [address] [facility] [id number] [address] [place] [address] Oct, Major depressive disorder, s hodan episode, unspecified F32.9 and Anxiety disorder, unspecified F41.9 [place] [address] [facility] [id number] [address] [place] [address] Oct, Major depressive disorder, s hodan episode, unspecified F32.9 and Anxiety disorder, unspecified F41.9 [place] [address] [facility] [id number] [address] [place] [address] Oct, Major depressive disorder, s hodan episode, unspecified F32.9 and Anxiety disorder, unspecified F41.9 [place] [address] [id number] [address] [place] [address] Sep, Anxiety disorder, unspecifie d F41.9 [facility] [address] [id number] [address] [place] [address] Aug, Sore throat J02.9 [facility] [address] [facility] [id number] [address] [place] [address] Aug, Anxiety disorder, unspecifie d F41.9 [facility] [address] [id number] [address] [place] [address] Aug, Major depressive disorder, s hodan episode, unspecified F32.9 and Anxiety disorder, unspecified F41.9 [facility] [address] [id number] [address] [place] [address] Aug, Major depressive disorder, s hodan episode, unspecified F32.9 [facility] [address] [id number] [address] [place] [address] Jul, Depressive disorder, not els ewhere classified 311 and Anxiety state, unspecified 300.00 [facility] [address] [id number] [address] [place] [address] Jul, Depressive disorder, not els ewhere classified 311 and Anxiety state, unspecified 300.00 [facility] [address] [id number] [address] [place] [address] Jul, [facility] [address] [id number] [address] [place] [address] Jul, [facility] [address] [id number] [address] [place] [address] Jul, [facility] [address] [id number] [address] [place] [address] Jun, [facility] [address] [id number] [address] [place] [address] Jun, Depressive disorder, not els ewhere classified 311 and Anxiety state, unspecified 300.00 [facility] [address] [id number] [address] [place] [address] May, Anxiety state, unspecified 3 00.00 [facility] [address] [id number] [address] [place] [address] May, Anxiety state, unspecified 3 00.00 [facility] [address] [id number] [address] [place] [address] Apr, [facility] [address] [id number] [address] [place] [address] Apr, Anxiety state 300.00 [facility] [address] [id number] [address] [place] [address] Apr, Anxiety state, unspecified 3 00.00 [facility] [address] [id number] [address] [place] [address] Apr, Pharyngitis 462 and Oral thr ush 112.0 [facility] [address] [id number] [address] [place] [address] Feb, [facility] [address] [id number] [address] [place] [address] Feb, [facility] [address] [id number] [address] [place] [address] Jun, [facility] [address] [id number] [address] [place] [address] Jun, [facility] [address] [id number] [address] [place] [address] Nov, [facility] [address] [id number] [address] [place] [address] Nov, [facility] [address] [id number] [address] [place] [address] Nov, [facility] [address] [id number] [address] [place] [address] Nov, [facility] [address] [id number] [address] [place] [address], [place] [address] Oct, [facility] [address] [id number] [address] [place] [address], [place] [address] Oct, [facility] [address] [id number] [address] [place] [address], [place] [address] Oct, [facility] [address] [id number] [address] [place] [address], [place] [address] Oct, [facility] [address] [id number] [address] [place] [address], [place] [address] Oct, [facility] [address] [id number] [address] [place] [address], [place] [address] Oct, [facility] [address] [id number] [address] [place] [address], [place] [address] Feb, [facility] [address] [id number] [address] [place] [address], [place] [address] Jan, [facility] [address] [id number] [address] [place] [address], [place] [address] Jan, [facility] [address] [id number] [address] [place] [address], [place] [address] Dec, [facility] [address] [id number] [address] [place] [address], [place] [address] Aug, [facility] [address] [id number] [address] [place] [address], [place] [address] Jun, [facility] [address] [id number] [address] [place] [address], [place] [address] Feb, [facility] [address] [id number] [address] [place] [address], [place] [address] 29 Jan, 2012 [facility] [address] [id number] [address] [place] [address], [place] [address] Jan, [facility] [address] [id number] [address] [place] [address], [place] [address] Dec, [facility] [address] [id number] [address] [place] [address] Oct, [facility] [address] [id number] [address] [place] [phone] Jun, [facility] [address] [id number] [address] [place] [address] Aug, [facility] [address] [id number] [address] [place] [address] Jul, [facility] [address] [id number] [address] [place] [address] Jun, [facility] [address] [id number] [address] [place] [address] Apr, [facility] [address] [id number] [address] [place] [address] Sep, [facility] [address] [id number] [address] [place] [address] Jan, IMMUNIZATIONS No Known Immunizations SOCIAL HISTORY Never Assessed REASON FOR VISIT Depression and Anxiety, pt states it comes and goes. 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 pt states working [employer] she felt like she had it under control. Cshejeovanny JIMENES PLAN OF CARE Activity Details Follow Up 3 Months Reason: VITAL SIGNS Height 59 in 2018-10-21 Weight 197.1 lbs 2018-10-21 Temperature 98.7 degrees Fahrenheit 2018-10-21 Heart Rate 106 bpm 2018-10-21 Respiratory Rate 20 2018-10-21 BMI 39.81 kg/m2 2018-10-21 Blood pressure systolic 115 mmHg 2018-10-21 Blood pressure diastolic 70 mmHg 2018-10-21 MEDICATIONS Medication Instructions Dosage Frequency Start Date End Date Duration S tatus Zyrtec Allergy 10 MG Orally Once a day 1 tablet 24h 30 day(s) Active BuPROPion HCl 75 MG Orally Twice a day 1tablet 12h Oct, 30 day(s) Active Lorazepam 1 MG Orally 2 times a day, prn anxiety 1 tablet Oct Active Xanax 0.5 MG Orally 2 times a day. MUST LAST 28 DAYS. 1 tablet as n eeded Sep, 28 days Not-Taking Lexapro 20 MG Orally Once a day 1 tablet 24h Aug, Not-Taking RESULTS No Results PROCEDURES No Known procedures INSTRUCTIONS MEDICATIONS ADMINISTERED No Known Medications MEDICAL (GENERAL) HISTORY Type Description Date Medical History PCOS (Polycystic Ovary Syndrome) Medical History depression Medical History anxiety Medical History attention deficit hyperactivity disorder
--- OUTSIDE RECORDS SUMMARY | 2020-03-28 16:00 | XMS REPORT ---
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 Unknown Non Drug Allergy Oct, Unknown SOCIAL HISTORY No smoking Hx information available PLAN OF CARE Activity Details Follow Up 4 Months Reason: VITAL SIGNS Height 59 in 2016-10-30 Weight 191.0 lbs 2016-10-30 Temperature 98.4 degrees Fahrenheit 2016-10-30 Heart Rate 82 bpm 2016-10-30 Respiratory Rate 18 2016-10-30 BMI 38.57 kg/m2 2016-10-30 Blood pressure systolic 104 mmHg 2016-10-30 Blood pressure diastolic 80 mmHg 2016-10-30 MEDICATIONS Medication Instructions Dosage Frequency Start Date End Date Duration S tatus Lexapro 20 MG Orally Once a day 1 tablet 24h Aug, Active Xanax 0.5 MG Orally 2 times a day. MUST LAST 28 DAYS. 1 tablet as n eeded Sep, 28 days Active RESULTS No Results PROCEDURES Procedure Date Ordered Related Diagnosis Body Site Office Visit, Est Pt., Level 2 Oct 30, 2016 IMMUNIZATIONS No Known Immunizations
--- OUTSIDE RECORDS SUMMARY | 2020-03-28 16:00 | XMS REPORT ---
Author Author Nicole COLLINS Organization [facility] Address [address] [place] [address] Care Team Providers Care Dress Cap Maker Name Role Phone JOHAN COLLINS Unavailable PROBLEMS Type Condition ICD9-CM Code RGR86-HV Code Onset Dates Condition S tatus SNOMED Code Problem Amenorrhea N91.2 Active 05515652 Problem Anovulation N97.0 Active 31647638 Problem Anxiety disorder, unspecified F41.9 Active 621931015 Problem Major depressive disorder, single episode, unspecified F32.9 Active 80557927 Problem Moderate major depression F32.1 Acti ve 416742 Problem Irregular menses N92.6 Active 801 74885 ALLERGIES No Information ENCOUNTERS Encounter Location Date Diagnosis [place] [address] [address] Jan, Moderate major depression F32.[address] [address] 24 Dec, 2019 Anovulation N97.[address] [address] 10 Dec, 2019 Moderate major depression F32.1 [place] [address] [address] Dec, Amenorrhea N91.[address] [address] Nov, Right ovarian cyst N83.[address] [address] Nov, Pelvic pain R10.2 ; Amenorrhea N91.2 and Well woman exam Z01.[address] [address] Nov, Pelvic pain R10.2 [facility] [address] [address] Nov, Moderate major depression F32.1 [facility] [address] [address] Nov, Well woman exam Z01.419 ; Pelvic pain R1 0.2 and Amenorrhea N91.2 [facility] [address] [address] Oct, Moderate major depression F32.1 and Anxi ety disorder, unspecified F41.9 [place] [address] [address] Sep, Moderate major depression F32.1 [place] [address] [address] Aug, Moderate major depression F32.1 [place] [address] [address] Aug, [facility] [address] [facility] [id number] [address] [place] [address] Aug, Viral gastroenteritis A08.4 [place] [address] [address] Jul, Moderate major depression F32.1 [place] [address] [address] May, Moderate major depression F32.1 [facility] [address] [address] Apr, Moderate major depression F32.1 [facility] [address] [address] Apr, Major depressive disorder, single episod e, unspecified F32.9 and Anxiety disorder, unspecified F41.9 [facility] [address] [address] Feb, Moderate major depression F32.1 [place] [address] [address] Oct, [place] [address] [address] Oct, Moderate major depression F32.1 [facility] [place] [address] [address] [place] [id number] [address] [place] [address] Sep, Acute cystitis N30.00 [facility] IN [place] [address] [address] Aug, Dysuria R30.0 and Candidiasi s of female genitalia B37.3 [facility] IN [place] [address] [address] Nov, Acute sinusitis, recurrence not specified, unspecified location J01.90 [place] [address] [address] Oct, Major depressive disorder, single episod e, unspecified F32.9 and Anxiety disorder, unspecified F41.9 [place] [address] [address] Jun, Major depressive disorder, single episod e, unspecified F32.9 and Anxiety disorder, unspecified F41.9 [place] [address] [address] March, Anxiety disorder, unspecified F41.9 and Muscle spasm of back M62.830 [facility] CARE [facility] [address] [place] [id number] [place] [address] Jan, Abscess and cellulitis L03.9 0 [place] [address] [address] Dec, Anxiety disorder, unspecified F41.9 and Major depressive disorder, single episode, unspecified F32.9 [place] [address] [address] Nov, Major depressive disorder, single episod e, unspecified F32.9 [facility] [address] [facility] [id number] [address] [place] [address] Nov, Pneumonia J18.9 [place] [address] [address] Oct, Anxiety disorder, unspecified F41.9 and Major depressive disorder, single episode, unspecified F32.9 [place] [address] [address] Oct, Major depressive disorder, single episod e, unspecified F32.9 and Anxiety disorder, unspecified F41.9 [place] [address] [address] Oct, Major depressive disorder, single episod e, unspecified F32.9 and Anxiety disorder, unspecified F41.9 [place] [address] [address] Oct, Major depressive disorder, single episod e, unspecified F32.9 and Anxiety disorder, unspecified F41.9 [place] [address] [address] Sep, Anxiety disorder, unspecified F41.9 [place] [address] [address] Aug, Sore throat J02.9 [place] [address] [address] Aug, Anxiety disorder, unspecified F41.9 [place] [address] [address] Aug, Major depressive disorder, single episod e, unspecified F32.9 and Anxiety disorder, unspecified F41.9 [place] [address] [address] Aug, Major depressive disorder, single episod e, unspecified F32.9 [place] [address] [address] Jul, Depressive disorder, not elsewhere class ified 311 and Anxiety state, unspecified 300.00 [facility] [address] [address] Jul, Depressive disorder, not elsewhere class ified 311 and Anxiety state, unspecified 300.00 [facility] [address] [address] Jul, [facility] [address] [address] Jul, [facility] [address] [address] Jul, [facility] [address] [address] Jun, [facility] [address] [address] Jun, Depressive disorder, not elsewhere class ified 311 and Anxiety state, unspecified 300.00 [facility] [address] [address] May, Anxiety state, unspecified 300.00 [facility] [address] [address] May, Anxiety state, unspecified 300.00 [facility] [address] [address] Apr, [facility] [address] [address] Apr, Anxiety state 300.00 [facility] [address] [address] Apr, Anxiety state, unspecified 300.00 [facility] [address] [address] Apr, Pharyngitis 462 and Oral thrush 112.0 [facility] [address] [address] Feb, [facility] [address] [place] [address] Feb, [facility] [address] [facility] [place] [address] Jun, [facility] [address] [facility] [place] [address] Jun, [facility] [address] [id number] [place] [address] Nov, [facility] [address] [id number] [place] [address] Nov, [facility] [address] [id number] [place] [address] Nov, [facility] [address] [id number] [place] [address] Nov, [facility] [address] [id number] [place] [address] Oct, [facility] [address] [id number] [place] [address] Oct, [facility] [address] [facility] [place] [address] Oct, [facility] [address] [id number] [place] [address] Oct, [facility] [address] [id number] [place] [address] Oct, [facility] [address] [id number] [place] [address] Oct, [facility] [address] [id number] [place] [address] Feb, [facility] [address] [id number] [place] [address] Jan, [facility] [address] [id number] [place] [address] Jan, [facility] [address] [id number] [place] [address] Dec, [facility] [address] [id number] [place] [address] Aug, [facility] [address] [id number] [place] [address] Jun, [facility] [address] [id number] [place] [address] Feb, [facility] [address] [id number] [place] [address] Jan, [facility] [address] [place] [id number] [place] [address] Jan, [facility] [address] [place] [id number] [place] [address] Dec, [facility] [address] [place] [id number] [place] [address] Oct, [facility] [address] [place] [id number] [place] [address] Jun, [facility] [address] [place] [id number] [place] [address] Aug, [facility] [address] [place] [id number] [place] [address] Jul, [facility] [address] [place] [id number] [place] [address] Jun, [facility] [address] [id number] [place] [address] Apr, [facility] [address] [facility] [place] [address] Sep, [facility] [address] [id number] [place] [address] Jan, IMMUNIZATIONS No Known Immunizations SOCIAL HISTORY [...]
--- OUTSIDE RECORDS SUMMARY | 2020-03-28 16:00 | XMS REPORT ---
Author Author Nicole Méndez Doctor Organization [facility] Address Unknown Phone Unavailable Care Team Providers Care Signal Worker Helper Name Role Phone Migration, Doctor Unavailable Unavailable PROBLEMS Type Condition ICD9-CM Code JGH01-DH Code Onset Dates Condition S tatus SNOMED Code Problem Major depressive disorder, single episode, unspecified F32.9 Active 02500701 Problem Moderate major depression F32.1 Acti ve 559938 Problem Anxiety disorder, unspecified F41.9 Active [id number] ALLERGIES No Information ENCOUNTERS Encounter Location Date Diagnosis [place] [address] [address] Oct, [place] [address] [address] Oct, Moderate major depression F3 2.1 [facility] [address] [address] Sep, Acute cystitis N30.00 [facility] [address] [place] [id number] [place] [address] Aug, Dysuria R30.0 and Candidiasi s of female genitalia B37.3 [facility] [address] [address] Nov, Acute sinusitis, recurrence not specified, unspecified location J01.90 [facility] [address] [place] [id number] [place] [address] Oct, Major depressive disorder, s hodan episode, unspecified F32.9 and Anxiety disorder, unspecified F41.9 [place] [address] [place] [id number] [place] [address] Jun, Major depressive disorder, s hodan episode, unspecified F32.9 and Anxiety disorder, unspecified F41.9 [facility] [address] [id number] [address] [place] [address] March, Anxiety disorder, unspecifie d F41.9 and Muscle spasm of back M62.830 [facility] [address] [id number] [address] [place] [address] Jan, Abscess and cellulitis L03.9 0 [facility] [address] [facility] [id number] [address] [place] [address] Dec, Anxiety disorder, unspecifie d F41.9 and Major depressive disorder, single episode, unspecified F32.9 [place] [address] [facility] [id number] [address] [place] [address] Nov, Major depressive disorder, s hodan episode, unspecified F32.9 [facility] [address] [facility] [id number] [address] [place] [address] Nov, Pneumonia J18.9 [place] [address] [address] [facility] [id number] [address] [place] [phone] Oct, Anxiety disorder, unspecifie d F41.9 and Major depressive disorder, single episode, unspecified F32.9 [place] [address] [address] [facility] [id number] [address] [place] [phone] Oct, Major depressive disorder, s hodan episode, unspecified F32.9 and Anxiety disorder, unspecified F41.9 [place] [address] [facility] [id number] [address] [place] [address] Oct, Major depressive disorder, s hodan episode, unspecified F32.9 and Anxiety disorder, unspecified F41.9 [place] [address] [address] [facility] [id number] [address] [place] [address] Oct, Major depressive disorder, s hodan episode, unspecified F32.9 and Anxiety disorder, unspecified F41.9 [place] [address] [address] [facility] [id number] [address] [place] [phone] Sep, Anxiety disorder, unspecifie d F41.9 [facility] [address] [id number] [address] [place] [address] Aug, Sore throat J02.9 [facility] [address] [facility] [id number] [address] [place] [address] Aug, Anxiety disorder, unspecifie d F41.9 [facility] [address] [facility] [id number] [address] [place] [address] Aug, Major depressive disorder, s hodan episode, unspecified F32.9 and Anxiety disorder, unspecified F41.9 [facility] [address] [id number] [address] [place] [phone] Aug, Major depressive disorder, s hodan episode, unspecified F32.9 [facility] [address] [facility] [id number] [address] [place] [phone] Jul, Depressive disorder, not els ewhere classified 311 and Anxiety state, unspecified 300.00 [facility] [address] [id number] [address] [place] [address] Jul, Depressive disorder, not els ewhere classified 311 and Anxiety state, unspecified 300.00 [facility] [address] [facility] [id number] [address] [place] [address] Jul, [facility] [address] [id number] [address] [place] [address] Jul, [facility] [address] [id number] [address] [place] [phone] Jul, [facility] [address] [id number] [address] [place] [address] Jun, [facility] [address] [facility] [id number] [address] [place] [address] Jun, Depressive disorder, not els ewhere classified 311 and Anxiety state, unspecified 300.00 [facility] [address] [facility] [id number] [address] [place] [address] May, Anxiety state, unspecified 3 00.00 [facility] [address] [id number] [address] [place] [phone] May, Anxiety state, unspecified 3 00.00 [facility] [address] [id number] [address] [place] [address] Apr, [facility] [address] [id number] [address] [place] [address] Apr, Anxiety state 300.00 [facility] [address] [id number] [address] [place] [address] Apr, Anxiety state, unspecified 3 00.00 [facility] [address] [id number] [address] [place] [address] Apr, Pharyngitis 462 [address] Oral thr ush 112.0 [facility] [address] [id number] [address] [place] [phone] Feb, [facility] [address] [id number] [address] [place] [address] Feb, [facility] [address] [id number] [address] [place] [address] Jun, [facility] [address] [id number] [address] [place] [phone] Jun, [facility] [address] [id number] [address] [place] [phone] Nov, [facility] [address] [id number] [address] [place] [address] Nov, [facility] [address] [id number] [address] [place] [phone] Nov, [facility] [address] [id number] [address] [place] [phone] Nov, [facility] [address] [id number] [address] [place] [phone] Oct, [facility] [address] [id number] [address] [place] [address], [place] [address] Oct, [facility] [address] [id number] [address] [place] [address], [place] [address] Oct, [facility] [address] [id number] [address] [place] [address], [place] [address] Oct, [facility] [address] [id number] [address] [place] [address], [place] [address] Oct, [facility] [address] [id number] [address] [place] [address], [place] [address] Oct, [facility] [address] [id number] [address] [place] [address], [place] [address] Feb, [facility] [address] [id number] [address] [place] [address], [place] [address] Jan, [facility] [address] [id number] [address] [place] [address], [place] [address] Jan, [facility] [address] [id number] [address] [place] [address], [place] [address] Dec, [facility] [address] [id number] [address] [place] [address] Aug, [facility] [address] [id number] [address] [place] [address], [place] [address] Jun, [facility] [address] [id number] [address] [place] [address] Feb, [facility] [address] [id number] [address] [place] [address], [place] [address] Jan, [facility] [address] [id number] [address] [place] [address], [place] [address] Jan, [facility] [address] [id number] [address] [place] [address] Dec, [facility] [address] [id number] [address] [place] [phone] Oct, [facility] [address] [id number] [address] [place] [phone] Jun, [facility] [address] [id number] [address] [place] [address] Aug, [facility] [address] [id number] [address] [place] [phone] Jul, [facility] [address] [id number] [address] [place] [phone] Jun, [facility] [address] [id number] [address] [place] [address] Apr, [facility] [address] [id number] [address] [place] [address] Sep, [facility] [address] [facility] [id number] [address] [place] [phone] Jan, IMMUNIZATIONS No Known Immunizations SOCIAL HISTORY Never Assessed REASON FOR VISIT EMR-[facility] PLAN OF CARE VITAL SIGNS MEDICATIONS Medication Instructions Dosage Frequency Start Date End Date Duration S tatus Xanax 0.5 mg 1 tablet by Oral route 2 times per day 14 2013 Active Bactrim DS 800-160 mg 1 tablet by Oral route 2 times p er day for 7 day(s) Dec, Active B Complex Vitamins 1 ml daily Oct, Active Promethazine-Codeine 6.25-10 mg/5 mL 10 mL by Oral route every 4 hours for 5 day(s) Jan, Active Nitrofurantoin Macrocrystal 100 mg 1 cap peter by Oral route 2 times per day for 7 day(s) Jan, Active Tessalon Perles 100 mg 1 capsule by Oral route 3 times per day for 10 PRN for cough Oct, Active Tamiflu 75 mg 1 capsule by Oral route 2 times per day for 5 day(s) Jan, Active Azithromycin 250 mg 2 Tablet by Oral rou te on day 1 then take 1 daily for 4 days Oct, Active Lexapro 10 mg take 1 tablet (10 mg) by oral route once daily Oct, Active PredniSONE 10 mg 1 Tablet by Oral rou te 2 times per day for 5 days Take at 8 am and noon. Oct, Active Pyridium 200 mg 1 tablet by Oral rou te 3 times per day for 3 day(s) for bladder pain Dec, Active RESULTS No Results PROCEDURES No Known procedures INSTRUCTIONS MEDICATIONS ADMINISTERED No Known Medications MEDICAL (GENERAL) HISTORY Type Description Date Medical History PCOS (Polycystic Ovary Syndrome) Medical History depression Medical History anxiety Medical History attention deficit hyperactivity disorder
--- OUTSIDE RECORDS SUMMARY | 2020-03-28 16:00 | XMS REPORT ---
Author Author Nicole WNAG [facility] [employer]ClinicalWorks Address Unknown Phone Unavailable Care Team Providers Care Diet Clerk Name Role Phone DIANA WANG CP Unavailable Allergies No Known Allergies Problems Problem Type Condition ICD-9 Code Onset Dates Condition Statu s Problem Depressive disorder, not elsewhere classified 311 Active Problem Anxiety state, unspecified 300.00 A ctive Problem Other and unspecified noninfectious gastroenteritis an d colitis 558.9 Active Problem Essential hypertension, benign 401.1 Active Problem Influenza with other respiratory manifestations 487.1 Active Problem Cough 786.2 Active Problem Acute sinusitis, unspecified 461.9 Active Medications Medication Code System Code Instructions Start Date End Date Status Dosage Xanax [facility] [address]-00 0.5 MG Orally Twice a day prn May 09 5 1 tablet Results No Known Results Summary Purpose eClinicalWorks Submission
--- OUTSIDE RECORDS SUMMARY | 2020-03-28 16:00 | XMS REPORT ---
Author Author Nicole WANG [facility] [employer]ClinicalWorks Address Unknown Phone Unavailable Care Team Providers Care Major Account Representative Name Role Phone DIANA WANG CP Unavailable [...] Problem Acute sinusitis, unspecified 461.9 Active Medications No Known Medications Results No Known Results Summary Purpose eClinicalWorks Submission
--- OUTSIDE RECORDS SUMMARY | 2020-03-28 16:00 | XMS REPORT ---
Author Author Nicole WANG [facility] eClinicalWorks Address Unknown Phone Unavailable Care Team Providers Care Clinical Support Associate Name Role Phone DIANA WANG CP Unavailable Allergies, Adverse Reactions, Alerts Substance Reaction Event Type N.K.D.A. Info Not Available Non Drug Allergy Problems Problem Type Condition Code Onset Dates Condition Statu s Assessment Anxiety disorder, unspecified F41.9 Active Assessment Major depressive disorder, single episode, unspecified F32.9 Active Problem Anxiety disorder, unspecified F41.9 Active Problem Other and unspecified noninfectious gastroenteritis an d colitis 558.9 Active Problem Major depressive disorder, single episode, unspecified F32.9 Active Problem Essential hypertension, benign 401.1 Active Problem Influenza with other respiratory manifestations 487.1 Active Problem Cough 786.2 Active Problem Acute sinusitis, unspecified 461.9 Active Medications Medication Code System Code Instructions Start Date End Date Status Dosage Xanax [facility] [address]-83 0.5 MG Orally 2 times a day as needed for anxiety. MUST LAST 30 DAYS. Sep 30, 2015 1 tablet Lexapro [facility] [address]-84 20 MG Orally Once a day Aug 29, 2015 1 tablet Procedures Procedure Coding System Code Date Office Visit, Est Pt., Level 3 CPT-4 00350 D 2014 Vital Signs Date/Time: Oct 31, 2015 Temperature 97.6 F Weight 181.2 lbs Height 59 in BMI 36.59 Index Blood Pressure Diastolic 88 mmHg Blood Pressure Systolic 132 mmHg Cardiac Monitoring Heart Rate 80 bpm Results No Known Results Summary Purpose eClinicalWorks Submission
--- OUTSIDE RECORDS SUMMARY | 2020-03-28 16:00 | XMS REPORT ---
Author Author Nicole JUNE [facility] eClinicalWorks Address Unknown Phone Unavailable Care Team Providers Care Wiener Packer Name Role Phone PATRICIA JUNE CP Unavailable Allergies No Known Allergies Problems Problem Type Condition Code Onset Dates Condition Statu s Assessment Major depressive disorder, single episode, unspecified F32.9 Active Assessment Anxiety disorder, unspecified F41.9 Active Problem Anxiety disorder, unspecified F41.9 Active Problem Other and unspecified noninfectious gastroenteritis an d colitis 558.9 Active Problem Major depressive disorder, single episode, unspecified F32.9 Active Problem Essential hypertension, benign 401.1 Active Problem Influenza with other respiratory manifestations 487.1 Active Problem Cough 786.2 Active Problem Acute sinusitis, unspecified 461.9 Active Medications No Known Medications Procedures Procedure Coding System Code Date Psychotherapy, patient &/family, 45 minutes, established patient CPT-4 24040 Oct 12, 2015 Results No Known Results Summary Purpose eClinicalWorks Submission
--- OUTSIDE RECORDS SUMMARY | 2020-03-28 16:00 | XMS REPORT ---
Author Author Nicole LOPEZ eClinicalWorks Address Unknown Phone Unavailable Care Team Providers Care Computer Education Teacher Name Role Phone NIKITA LOPEZ Unavailable Allergies, Adverse Reactions, Alerts Substance Reaction Event Type N.K.D.A. Info Not Available Non Drug Allergy Problems Problem Type Condition Code Onset Dates Condition Statu s Assessment Pneumonia J18.9 Active Problem Anxiety disorder, unspecified F41.9 Active [...] Start Date End Date Status Dosage Xanax [facility] [address]-26 0.5 MG Orally 2 times a day as needed for anxiety. MUST LAST 30 DAYS. Sep 30, 2015 1 tablet Tessalon Perles [facility] [address]-41 100 MG Orally Three times a day Nov 26, 2015 Dec 01, 2015 1 capsule as needed Lexapro [facility] [address]-42 20 MG Orally Once a day Aug 29, 2015 1 tablet Azithromycin [facility] [address]-03 250 MG Orally Once a day NovDec 01, 2015 2 tablets on the first day, then 1 tablet daily for 4 days Procedures Procedure Coding System Code Date Office Visit, Est Pt., Level 3 CPT-4 52713 J 2015 DEPO MEDROL 40 MG/ML CPT-4 J1030 Nov 26 6 MEASURE BLOOD OXYGEN LEVEL CPT-4 04549 Nov 112015 THER/PROPH/DIAG INJ, SC/IM CPT-4 69976 Nov 112015 Vital Signs Date/Time: Nov 26, 2015 Temperature 97.0 F Weight 183.2 lbs Height 59 in Oximetry 94 % Blood Pressure Diastolic 82 mmHg Blood Pressure Systolic 106 mmHg Cardiac Monitoring Heart Rate 108 bpm BMI 37.00 Index Results No Known Results Summary Purpose eClinicalWorks Submission
--- OUTSIDE RECORDS SUMMARY | 2020-03-28 16:00 | XMS REPORT ---
Author Author Nicole WANG [facility] eClinicalWorks Address Unknown Phone Unavailable Care Team Providers Care Certified Tower Climber Name Role Phone DIANA WANG CP Unavailable Allergies No Known Allergies Problems Problem Type Condition Code Onset Dates Condition Statu s Assessment Anxiety disorder, unspecified F41.9 Active Problem [...] Date End Date Status Dosage Xanax [facility] [address]-80 0.5 MG Orally 2 times a day as needed for anxiety. MUST LAST 30 DAYS. Sep 30, 2015 1 tablet Results No Known Results Summary Purpose eClinicalWorks Submission
--- OUTSIDE RECORDS SUMMARY | 2020-03-28 16:00 | XMS REPORT ---
Author Author Nicole LARA [facility] eClinicalWorks Address Unknown Phone Unavailable Care Team Providers Care Copyright Expert Name Role Phone PATRICK LARA CP Unavailable Allergies, Adverse Reactions, Alerts Substance Reaction Event Type N.K.D.A. Info Not Available Non Drug Allergy Problems Problem Type Condition Code Onset Dates Condition Statu s Problem Anxiety disorder, unspecified F41.9 Active Assessment Major depressive disorder, single episode, unspecified F32.9 Active Problem Major depressive disorder, single episode, unspecified F32.9 Active Assessment Anxiety disorder, unspecified F41.9 Active Medications Medication Code System Code Instructions Start Date End Date Status Dosage Lexapro [facility] [address]-07 20 MG Orally Once a day Aug 29, 2015 1 tablet Xanax [facility] [address]-05 0.5 MG Orally 2 times a day . MUST LAST 28 DAYS. Sep 30, 2015 1 tablet as needed Procedures Procedure Coding System Code Date Office Visit, Est Pt., Level 2 CPT-4 13234 A 2015 Vital Signs Date/Time: Jun 19, 2016 Cardiac Monitoring Heart Rate 76 bpm Weight 190.4 lbs Height 59 in BMI 38.45 Index Blood Pressure Diastolic 80 mmHg Blood Pressure Systolic 121 mmHg Results No Known Results Summary Purpose eClinicalWorks Submission
--- OUTSIDE RECORDS SUMMARY | 2020-03-28 16:01 | XMS REPORT ---
Author Author Nicole WILKS Organization [facility] Address [address] [place] [address] Care Team Providers Care Rib Sawyer Name Role Phone CECE WILKS Unavailable PROBLEMS Type Condition ICD9-CM Code [id number] Code Onset Dates Condition S tatus SNOMED Code Problem Major depressive disorder, single episode, unspecified F32.9 Active 51028100 Problem Anxiety disorder, unspecified F41.9 Active 723032913 ALLERGIES Substance Reaction Event Type Date Status N.K.D.A. Unknown Non Drug Allergy Nov, Unknown SOCIAL HISTORY No smoking Hx information available PLAN OF CARE Activity Details Follow Up prn Reason: VITAL SIGNS Height 59 in 2016-11-13 Weight 192.6 lbs 2016-11-13 Temperature 97.5 degrees Fahrenheit 2016-11-13 Heart Rate 116 bpm 2016-11-13 Respiratory Rate 18 2016-11-13 BMI 38.90 kg/m2 2016-11-13 Blood pressure systolic 122 mmHg 2016-11-13 Blood pressure diastolic 78 mmHg 2016-11-13 MEDICATIONS Medication Instructions Dosage Frequency Start Date End Date Duration S tatus Fluticasone Propionate 50 MCG/ACT Nasally Once a day 1 spray in each nostril 24h Nov, 07 days Active Augmentin 875-125 MG Orally every 12 hrs 1 tablet 12h Nov, 2 017 Nov, 10 day(s) Active Lexapro 20 MG Orally Once a day 1 tablet 24h Aug, Active Xanax 0.5 MG Orally 2 times a day. MUST LAST 28 DAYS. 1 tablet as n eeded Sep, 28 days Active RESULTS No Results PROCEDURES Procedure Date Ordered Related Diagnosis Body Site Office Visit, Est Pt., Level 3 Nov 13, 2016 IMMUNIZATIONS No Known Immunizations
--- OUTSIDE RECORDS SUMMARY | 2020-03-28 16:01 | XMS REPORT ---
Author Author Nicole WANG [facility] eClinicalWorks Address Unknown Phone Unavailable Care Team Providers Care Corporate Services Manager Name Role Phone DIANA WANG CP Unavailable Allergies No Known Allergies Problems Problem Type Condition Code Onset Dates Condition Statu s Problem Influenza with other respiratory manifestations 487.1 Active Assessment Major depressive disorder, single episode, unspecified F32.9 Active Problem Other and unspecified noninfectious gastroenteritis an d colitis 558.9 Active Problem Depressive disorder, not elsewhere classified 311 Active Problem Major depressive disorder, single episode, unspecified F32.9 Active Problem Acute sinusitis, unspecified 461.9 Active Problem Essential hypertension, benign 401.1 Active Problem Anxiety state, unspecified 300.00 A ctive Problem Cough 786.2 Active Medications Medication Code System Code Instructions Start Date End Date Status Dosage Lexapro [facility] [address]-10 20 MG Orally Once a day Aug 29, 2015 1 tablet Results No Known Results Summary Purpose eClinicalWorks Submission
--- OUTSIDE RECORDS SUMMARY | 2020-03-28 16:01 | XMS REPORT ---
Author Author Nicole WANG [facility] eClinicalWorks Address Unknown Phone Unavailable Care Team Providers Care Medical Practice Administrator Name Role Phone DIANA WANG CP Unavailable [...] Start Date End Date Status Dosage Xanax [facility] [address]-18 0.5 MG Orally 2 times a day PRN. MUST LAST 30 DAYS. Sep 02, 2015 1 tablet Results No Known Results Summary Purpose eClinicalWorks Submission
--- OUTSIDE RECORDS SUMMARY | 2020-03-28 16:01 | XMS REPORT ---
Author Author Nicole DAVIS Organization eClinicalWorks Address Unknown Phone Unavailable Care Team Providers Care Shrink Pit Supervisor Name Role Phone STEFAN DAVIS CP Unavailable Allergies, Adverse Reactions, Alerts Substance Reaction Event Type N.K.D.A. Info Not Available Non Drug Allergy Problems Problem Type Condition Code Onset Dates Condition Statu s Assessment Sore throat J02.9 Active Problem Anxiety disorder, unspecified F41.9 Active [...] Start Date End Date Status Dosage Xanax [facility] [address]-36 0.5 MG Orally 2 times a day PRN. MUST LAST 30 DAYS. Sep 02, 2015 1 tablet Tessalon Perles [facility] [address]-01 100 MG Orally Three time s a day for cough Sep 07, 2015 1 capsule as needed Lexapro [facility] [address]-27 20 MG Orally Once a day Aug 29, 2015 1 tablet Penicillin V Potassium [facility] [address]-88 500 MG Orally Fou r times a day Sep 07, 2015 Sep 17, 2015 1 tablet Procedures Procedure Coding System Code Date Office Visit, Est Pt., Level 3 CPT-[address] 2014 STREP A ASSAY W/OPTIC CPT-4 21591 Sep 07 15 Vital Signs Date/Time: Sep 07, 2015 Temperature 98.2 F Weight 180.6 lbs Height 59 in BMI 36.47 Index Blood Pressure Diastolic 82 mmHg Blood Pressure Systolic 130 mmHg Cardiac Monitoring Heart Rate 84 bpm Results Name Result Date Reference Range Unit Abnormali ty Flag STREP A (IN HOUSE) Summary Purpose eClinicalWorks Submission
--- OUTSIDE RECORDS SUMMARY | 2020-03-28 16:01 | XMS REPORT ---
Author Author Nicole JUNE [facility] eClinicalWorks Address Unknown Phone Unavailable Care Team Providers Care Brick Yard Hand Name Role Phone PATRICIA JUNE CP Unavailable [...] patient &/family, 45 minutes, established patient CPT-4 36687 Oct 26, 2015 Results No Known Results Summary Purpose eClinicalWorks Submission
--- OUTSIDE RECORDS SUMMARY | 2020-03-28 16:01 | XMS REPORT ---
Author Author Nicole JUNE [facility] eClinicalWorks Address Unknown Phone Unavailable Care Team Providers Care Public Works Laborer Name Role Phone PATRICIA JUNE CP Unavailable [...] patient &/family, 45 minutes, established patient CPT-4 77492 Oct 19, 2015 Results No Known Results Summary Purpose eClinicalWorks Submission
--- OUTSIDE RECORDS SUMMARY | 2020-03-28 16:01 | XMS REPORT ---
Author Author Nicole QUIJANO eClinicalWorks Address Unknown Phone Unavailable Care Team Providers Care Ux Interaction Designer Name Role Phone MACKENZIE QUIJANO Unavailable Allergies No Known Allergies Problems Problem [...] Start Date End Date Status Dosage Xanax [facility] [address]-59 0.5 MG Orally 2 times a day . MUST LAST 28 DAYS. Sep 30, 2015 1 tablet as needed Lexapro [facility] [address]-90 20 MG Orally Once a day Aug 29, 2015 1 tablet Results No Known Results Summary Purpose eClinicalWorks Submission
--- OUTSIDE RECORDS SUMMARY | 2020-03-28 16:01 | XMS REPORT ---
Author Author Nicole WANG [facility] eClinicalWorks Address Unknown Phone Unavailable Care Team Providers Care Ammunition Storage Superintendent Name Role Phone DIANA WANG CP Unavailable [...]
--- OUTSIDE RECORDS SUMMARY | 2020-03-28 16:01 | XMS REPORT | Continuity of Care Document ---
Demographics Preferred Language Unknown Marital Status Unknown Tenriism Affiliation Unknown Race Unknown Ethnic Group Unknown Author Organization Unknown Address Unknown Phone Unavailable Allergies Active Description Code Type Severity Reaction Onset Reported/Identified Relationship to Patient Clinical Status Yes NO KNOWN DRUG ALLERGIES UNKNOWN NO KNOWN DRUG ALLERG Yes SULFA (SULFONAMIDE ANTIBIOTICS) MODERATE MODERATE Yes SULFA (SULFONAMIDE ANTIBIOTICS) MODERATE SWOLLEN LIPS Medications Medication Packaging Start Date St op Date Route Dosage Sig KETOROLAC VIAL INJ 30 MG/CC (TORADOL VIAL) MG 01/29/2018 01/29/2018 PRN ONCE ONDANSETRON VIAL INJ 4 MG/2CC (ZOFRAN 2CC VIAL) MG 01/29/2018 01/29/2018 PRN ONCE NORMAL SALINE 1000CC IV BAG INJ 0.9 % (NS 1000CC IV BAG) ml 01/29/2018 01/29/2018 ONCE&0628 MORPHINE SYRINGE INJ 2 MG/CC MG 01/29/2018 01/29/2018 PRN ONCE CEFTRIAXONE PREMIX IV BAG IV 1 GM/50CC (ROCEPHIN PREMIX IV BAG) GM 01/29/2018 01/29/2018 ONCE&0720 Hydromorphone inj 2mg/cc vial (Dilaudid) MG 01/29/2018 01/29/2018 ONCE&0945 ONDANSETRON VIAL INJ 4 MG/2CC (ZOFRAN 2CC VIAL) MG 01/29/2018 01/29/2018 ONCE&0949 CEFTRIAXONE PREMIX IV BAG IV 1 GM/50CC (ROCEPHIN PREMIX IV BAG) GM 01/30/2018 01/30/2018 ONCE&0902 Problems Date Dx Coded Attending Type Code Diagnosis Diagnosed By 01/29/2018 CLARK POST 041.49 OTHER AND UNSPECIFIED ESCHERICHIA COLI [E. COLI] INFECTION IN CONDITIONS CLASSIFIED ELSEWHERE AND OF UNSPECIFIED SITE 01/29/2018 CLAKR POST 599.0 URINARY TRACT INFECTION, SITE NOT SPECIFIED 01/29/2018 CL[facility] POST 599.70 HEMATURIA, UNSPECIFIED 01/29/2018 [facility] POST 789.04 ABDOMINAL PAIN, LEFT LOWER QUADRANT 01/29/2018 CL[facility] POST Chun B96.20 UNSP ESCHERICHIA COLI THE CAUSE OF DISEASES CLASSD ELSWHR 01/29/2018 CLARK POST N39.0 URINARY TRACT INFECTION, SITE NOT SPECIFIED 01/29/2018 [facility] POST Chun R10.32 LEFT LOWER QUADRANT PAIN 01/29/2018 [facility] POST Chun R31.9 HEMATURIA, UNSPECIFIED 01/30/2018 GarethRod W 041.49 OTHER AND UNSPECIFIED ESCHERICHIA COLI [E. COLI] INFECTION IN CONDITIONS CLASSIFIED ELSEWHERE AND OF UNSPECIFIED SITE 01/30/2018 Rod Servin Todd 599.0 URINARY TRACT INFECTION, SITE NOT SPECIFIED 01/30/2018 Rod Servin W B96.20 UNSP ESCHERICHIA COLI THE CAUSE [facility] DISEASES [facility] 01/30/2018 Rod Servin N39.0 URINARY TRACT INFECTION, SITE NOT SPECIFIED 01/05/2019 Randy Matthew 959.11 OTHER INJURY OF CHEST WALL 01/05/2019 Randy Matthew S29.092A INJ MUSCLE AND TENDON OF BACK WALL OF THORAX, INIT ENCNTR Procedures There is no data. Results Test Result Range Urine Culture, Routine - 09/06/17 18:37 Urine Culture, Routine Note CULTURE, URINE - 09/06/17 18:37 Urine Culture, Routine Final report NRG Result 1 Staphylococcus aureus NRG Antimicrobial Susceptibility N [facility] - 01/29/18 06:28 Anion Gap 17 6-14 BUN 12 mg/dL 5-25 Calcium 9.6 mg/dL 8.3-10.4 Chloride 105 mmol/L 95-114 CO2 20 mEq/L 22-33 Creat 0.80 mg/dL 0.50-1.50 eGFR 85 mL/min/1.73m2 >59 Glucose 78 mg/dL 70-110 Osmo 284 280-295 Potassium 4.3 mmol/L 3.5-5.3 Sodium 138 mmol/L 134-148 Urine Culture - 01/29/18 06:28 PRELIM CULTURE RESULTS >100,000 Gram Negativ e Lactose File Clerk Data Entry KASSIE / ID to Follow MEDIA PLATED Setup at 07:04 on 01/29/2018 CULTURE SOURCE clean catch reflex Drug Screen + ETOH - 01/05/19 14:53 Asset Accountant Anaya Montoya Donor ID By Photo ID Ethanol, Urine <10.00 mg/dL 20.00-80.00 Location [facility] Employee Reason For Test Post Accident Temperature In Range YES Deg F 90.00-100 .00 Urine Amphetamines NEGATIVE Urine Barbiturates NEGATIVE Urine Benzodiazepines NEGATIVE Urine Cocaine NEGATIVE Urine MDMA NEGATIVE Urine Methadone NEGATIVE Urine Methamphetamines NEGATIVE Urine Opiates NEGATIVE Urine Oxycodone NEGATIVE Urine PCP NEGATIVE Urine THC Metabolite NEGATIVE Quik Strep - 06/23/19 07:50 Quik Strep Negative - confirmation culture set. Negative SUREPATH PAP AND HPV mRNA E6/E7 - 16:08 CLINICAL INFORMATION: NRG LMP: AMENORRHEA NRG PREV. PAP: NRG PREV. BX: NRG SOURCE: Cervix NRG STATEMENT OF ADEQUACY: NRG INTERPRETATION/RESULT: NRG RESIZER OPERATOR: NRG HPV mRNA E6/E7, SUREPATH VIAL Not Detected NOT DETECTED REVIEW RESIZER OPERATOR: NRG COMMENT NRG TESTOSTERONE, TOTAL (WOMEN, CHILDREN, HY POGONADAL MALES) - 11/24/19 10:49 TESTOSTERONE, TOTAL, LC/MS/MS 32 ng/dL 2-45 FREE TESTOSTERONE 7.2 pg/mL 0.1-6.4 INSULIN LEVEL - 11/24/19 10:55 INSULIN 20.1 uIU/mL 2.0-19.6 FSH, SERUM - 12/14/19 15:57 FSH 5.8 mIU/mL NRG LH - 12/14/19 15:57 LH 24.9 mIU/mL NRG COVID-19 ([facility]) - 02/03/20 09:04 PATIENT SYMPTOMATIC? NOT GIVEN NRG SOURCE: NOT GIVEN NRG OVERALL RESULT: NOT DETECTED NOT DETE CTED SARS-CoV-2 RNA: NEGATIVE NEGATIVE FLOWERS-SARS RNA: NEGATIVE NEGATIVE HCG, QUANTITATIVE - 02/29/20 10:32 HCG, TOTAL, QN 26 mIU/mL NRG HCG, QUANTITATIVE - 03/02/20 10:00 HCG, TOTAL, QN 80 mIU/mL NRG CBC - 03/07/20 15:00 WHITE BLOOD CELL COUNT 11.7 Thousand/uL 3.8-10.8 RED BLOOD CELL COUNT 4.51 Million/uL 3.8 0-5.10 HEMOGLOBIN 13.4 g/dL 11.7-15.5 HEMATOCRIT 39.6 % 35.0-45.0 MCV 87.8 fL 80.0-100.0 MCH 29.7 pg 27.0-33.0 MCHC 33.8 g/dL 32.0-36.0 RDW 12.3 % 11.0-15.0 PLATELET COUNT 302 Thousand/uL 140-400 MPV 10.7 fL 7.5-12.5 ABSOLUTE NEUTROPHILS 6868 cells/uL 1500- 7800 ABSOLUTE LYMPHOCYTES 3650 cells/uL 850-3 900 ABSOLUTE MONOCYTES 854 cells/uL 200-950 ABSOLUTE EOSINOPHILS 257 cells/uL 15-500 ABSOLUTE BASOPHILS 70 cells/uL 0-200 NEUTROPHILS 58.7 % NRG LYMPHOCYTES 31.2 % NRG MONOCYTES 7.3 % NRG EOSINOPHILS 2.2 % NRG BASOPHILS 0.6 % NRG BLOOD TPYE/RH FACTOR - 03/07/20 15:00 ABO GROUP O NRG RH TYPE RH(D) POSITIVE NRG ANTIBODY SCREEN - 03/07/20 15:00 ANTIBODY SCREEN, RBC W/REFL ID, TITER AND AG NO ANTIBODIES DETECTED NRG HCG, QUANTITATIVE - 03/07/20 15:00 HCG, TOTAL, QN 644 mIU/mL NRG RUBELLA IMMUNE STATUS - 03/07/20 15:00 RUBELLA ANTIBODY (IGG) 4.35 index NRG SUREPATH PAP RFX HPV mRNA E6/E7 - 15:02 CLINICAL INFORMATION: NRG LMP: NONE GIVEN NRG PREV. PAP: NONE GIVEN NRG PREV. BX: NONE GIVEN NRG SOURCE: Cervix NR STATEMENT OF ADEQUACY: NR INTERPRETATION/RESULT: [facility] RESIZER OPERATOR: [facility] REVIEW RESIZER OPERATOR: NR COMMENT [facility] Urinalysis - 03/09/20 06:25 Icotest N/A Negative Urine Volume Urine Volume Insufficient ( <10mL) May Affect Microscopic Exam Urine Yeast No Yeast present Urine-Appearance Cloudy Clear Urine-Bacteria Trace Urine-Bilirubin Negative Negative Urine-Blood 3+ Negative Urine-Color Yellow Colorless-[place] ow Urine-Epithelial Cells 10-20/HPF Urine-Glucose Negative Negative Urine-Ketones Trace Negative Urine-Leukocytes Trace Negative Urine-Mucus 1+ Urine-Nitrite Negative Negative Urine-Other Urine Saved if Culture Need ed (48hrs from time of collection) Urine-pH 5.5 5-8.5 Urine-Protein 1+ Negative Urine-RBC TNTC Urine-Specific [place] 1.025 1.000-1 .030 Urine-WBC 0-2/HPF Urobilinogen 0.2 E.U./dL 0.2-1.0 HCG, QUANTITATIVE - 03/09/20 14:44 HCG, TOTAL, QN 673 mIU/mL NRG HCG, QUANTITATIVE - 03/11/20 14:11 HCG, TOTAL, QN 671 mIU/mL NRG HCG, QUANTITATIVE - 03/18/20 09:33 HCG, TOTAL, QN 2726 mIU/mL NRG PDM - BARBITURATES - 03/18/20 09:33 Prescribed Drug 1 Lorazepam NRG COMMENT NRG Amobarbital NEGATIVE ng/mL <100 medMATCH Amobarbital CONSISTENT NRG Butalbital NEGATIVE ng/mL <100 medMATCH Butalbital CONSISTENT NRG Pentobarbital NEGATIVE ng/mL <100 medMATCH Pentobarbital CONSISTENT NRG Secobarbital NEGATIVE ng/mL <100 medMATCH Secobarbital CONSISTENT NRG Phenobarbital NEGATIVE ng/mL <100 medMATCH Phenobarbital CONSISTENT NRG Complete urinalysis with reflex to cultu re - 03/28/20 14:23 Urine color determination YELLOW NRG Urine clarity determination CLEAR NR G Urine pH measurement by test strip 5.5 5-9 Specific gravity of urine by test strip >= 1.016-1.022 Urine protein assay by test strip, semi-quantitative NEGATIVE NEGATIVE Urine glucose detection by automated test strip NE GATIVE NEGATIVE Erythrocytes detection in urine sediment by light micr oscopy 1+ NEGATIVE Urine ketones detection by automated test strip NE GATIVE NEGATIVE Urine nitrite detection by test strip NEGATIVE NEGATIVE Urine total bilirubin detection by test strip NEGA TIVE NEGATIVE Urine urobilinogen measurement by automated test strip (mass/volume) 0.2 mg/dL < = 1.0 Urine leukocyte esterase detection by dipstick NEG ATIVE NEGATIVE Automated urine sediment erythrocyte cou nt by microscopy (number/high power field) [HPF] NRG Automated urine sediment leukocyte count by microscopy (number/high power field) [HPF] NRG Bacteria detection in urine sediment by light microsco py FEW NRG Squamous epithelial cells detection in u rine sediment by light microscopy 2-5 NRG Crystals detection in urine sediment by light microsco py NONE NRG Casts detection in urine sediment by light microscopy NONE NRG Mucus detection in urine sediment by light microscopy NEGATIVE NRG Complete urinalysis with reflex to culture NO NRG Complete blood count (CBC) with automate d white blood cell (WBC) differential - 03/28/20 14:23 Blood leukocytes automated count (number/volume) 10.3 10*3/uL 4.3-11.0 Blood erythrocytes automated count (number/volume) 4.53 10*6/uL 4.35-5.85 Venous blood hemoglobin measurement (mass/volume) 13.7 g/dL 11.5-16.0 Blood hematocrit (volume fraction) 40 % 35-52 Automated erythrocyte mean corpuscular volume 87 [ foz_us] 80-99 Automated erythrocyte mean corpuscular h emoglobin (mass per erythrocyte) 30 pg 25-34 Automated erythrocyte mean corpuscular h emoglobin concentration measurement (mass/volume) 35 g/dL 32-36 Automated erythrocyte distribution width ratio 12. 8 % 10.0- 14.5 Automated blood platelet count (count/volume) 301 10*3/uL 130-400 Automated blood platelet mean volume measurement 10.3 [foz_us] 7.4-10.4 Automated blood neutrophils/100 leukocytes 74 % 42-75 Automated blood lymphocytes/100 leukocytes 19 % 12-44 Blood monocytes/100 leukocytes 6 % 0-12 Automated blood eosinophils/100 leukocytes 1 % 0-10 Automated blood basophils/100 leukocytes 0 % 0-10 Blood neutrophils automated count (number/volume) 7.6 10*3 1.8-7.8 Blood lymphocytes automated count (number/volume) 1.9 10*3 1.0-4.0 Blood monocytes automated count (number/volume) 0. 6 10*3 0.0-1.0 Automated eosinophil count 0.1 10*3/uL 0 .0-0.3 Automated blood basophil count (count/volume) 0.0 10*3/uL 0.0-0.1 Comprehensive metabolic panel - 03/28/20 14:23 Serum or plasma sodium measurement (moles/volume) 137 mmol/L 135-145 Serum or plasma potassium measurement (moles/volume) 3.8 mmol/L 3.6-5.0 Serum or plasma chloride measurement (moles/volume) 107 mmol/L 98-107 Carbon dioxide 19 mmol/L 21-32 Serum or plasma anion gap determination (moles/volume) 11 mmol/L 5-14 Serum or plasma urea nitrogen measurement (mass/volume ) 8 mg/dL 7-18 Serum or plasma creatinine measurement (mass/volume) 0.83 mg/dL 0.60-1.30 Serum or plasma urea nitrogen/creatinine mass ratio 10 NRG Serum or plasma creatinine measurement w ith calculation of estimated glomerular filtration rate > NRG Serum or plasma glucose measurement (mass/volume) 118 mg/dL 70-105 Serum or plasma calcium measurement (mass/volume) 9.3 mg/dL 8.5-10.1 Serum or plasma total bilirubin measurement (mass/volu me) 0.4 mg/dL 0.1-1.0 Serum or plasma alkaline phosphatase leighann surement (enzymatic activity/volume) 56 U/L 40-136 Serum or plasma aspartate aminotransfera se measurement (enzymatic activity/volume) 19 U/L 5-34 Serum or plasma alanine aminotransferase measurement (enzymatic activity/volume) 12 U/L 0-55 Serum or plasma protein measurement (mass/volume) 7.4 g/dL 6.4-8.2 Serum or plasma albumin measurement (mass/volume) 4.1 g/dL 3.2-4.5 CALCIUM CORRECTED 9.2 mg/dL 8.5-10.1 Serum or plasma choriogonadotropin measu rement (units/volume) - 03/28/20 14:23 Serum or plasma choriogonadotropin measurement (units/ volume) 9503 m[iU]/mL <5 Encounters ACCT No. Visit Date/Time Discharge Status Pt. Type Provider Facility Loc./Unit Complaint [id number] 09/11/2017 20:07:00 Document Registration [id number] 03/28/2020 14:52:00 Document Registration [id number] 03/11/2020 14:00:00 03/11/2020 23:59: 59 [facility] Outpatient JANE SUMMERS, [facility] [id number] 03/18/2020 09:20:00 Document Registration [id number] 03/11/2020 14:00:00 Document Registration [id number] 03/09/2020 15:15:00 Document Registration [id number] 03/07/2020 14:30:00 Document Registration [id number] 03/02/2020 09:50:00 Document Registration [id number] 02/29/2020 10:20:00 Document Registration [id number] 02/03/2020 08:20:00 Document Registration [id number] 12/14/2019 15:15:00 Document Registration [id number] 11/24/2019 11:00:00 Document Registration [id number] 11/24/2019 10:00:00 Document Registration [id number] 11/16/2019 15:00:00 Document Registration [id number] 09/06/2017 18:10:00 Document Registration [id number] 03/09/2020 06:24:00 03/09/2020 23:59 :00 DIS Outpatient SUNSHINE, [place] [id number] 08/11/2019 15:22:00 08/11/2019 23:59: 00 DIS Outpatient [facility], PHY [id number] 06/23/2019 07:49:00 06/23/2019 23:59: 00 DIS Outpatient FOUZIA TURNER [id number] 01/05/2019 14:17:00 01/05/2019 15:40: 00 [facility] [id number] 08/12/2018 12:28:00 08/12/2018 23:59: 00 DIS Outpatient [facility], PHY [id number] 01/30/2018 07:56:00 01/30/2018 08:53: 00 DIS Outpatient Rod Servin [id number] 01/29/2018 06:17:00 01/29/2018 08:50: 00 DIS Outpatient [facility] ER [id number] 08/20/2017 12:39:00 08/20/2017 23:59: 00 DIS Outpatient [facility], [facility]Y [id number] 08/27/2016 13:59:00 08/27/2016 23:59: 00 [place] [id number] 01/29/2018 06:30:12 Document Registration
--- OUTSIDE RECORDS SUMMARY | 2020-03-28 16:01 | XMS REPORT ---
Author Author Nicole JUNE [facility] eClinicalWorks Address Unknown Phone Unavailable Care Team Providers Care Bmx Rider Name Role Phone PATRICIA JUNE CP Unavailable [...] patient &/family, 45 minutes, established patient CPT-4 07986 Sep 02, 2015 Results No Known Results Summary Purpose eClinicalWorks Submission
--- OUTSIDE RECORDS SUMMARY | 2020-03-28 16:01 | XMS REPORT ---
Author Author Nicole WANG [facility] eClinicalWorks Address Unknown Phone Unavailable Care Team Providers Care Completions Manager Name Role Phone DIANA WANG CP [...] Start Date End Date Status Dosage Xanax [facility] [address]-83 0.5 MG Orally Twice a day prn May 09 5 1 tablet Lexapro [facility] [address]-78 20 MG Orally Once a day May 03, 2015 1 tablet Results No Known Results Summary Purpose eClinicalWorks Submission
== END 2020-03-28 15:46 | disposition home or self-care (01) ==
LOC: EDUNIT# 13:25 → ER 13:27
DX: O20.0 Threatened abortion (principal); Z3A.01 Less than 8 weeks gestation of pregnancy
CPT/HCPCS: 36415; 80053; 81000; 84702; 84703; 85025

== ENCOUNTER 2020-04-02 09:11 | Emergency (ER) | payer SELFPAY ==
[~2020-04-02] VITALS: Ht 147 cm; Wt 88.1 kg
--- OUTSIDE RECORDS SUMMARY | 2020-04-02 09:17 | XMS REPORT | Continuity of Care Document ---
Demographics Preferred Language Unknown Marital Status Unknown Samaritan Affiliation Unknown Race Unknown Ethnic Group Unknown Author Organization Unknown Address Unknown Phone Unavailable Allergies Active Description Code Type Severity Reaction Onset Reported/Identified Relationship to Patient Clinical Status Yes NO KNOWN DRUG ALLERGIES UNKNOWN NO KNOWN DRUG ALLERG Yes SULFA (SULFONAMIDE ANTIBIOTICS) MODERATE MODERATE Yes SULFA (SULFONAMIDE ANTIBIOTICS) MODERATE SWOLLEN LIPS Yes No Known Drug Allergies [id number] Drug Allergy Mild N/A 10/07/2009 Medications Medication Packaging Start Date St op [...] CLASSIFIED ELSEWHERE AND OF UNSPECIFIED SITE 01/29/2018 [facility] 599.0 URINARY TRACT INFECTION, SITE NOT SPECIFIED 01/29/2018 [facility] 599.70 HEMATURIA, UNSPECIFIED 01/29/2018 [facility] W 789.04 ABDOMINAL PAIN, LEFT LOWER QUADRANT 01/29/2018 [facility] W B96.20 UNSP ESCHERICHIA COLI THE CAUSE OF DISEASES CLASSD ELSWHR 01/29/2018 [facility] N39.0 URINARY TRACT INFECTION, SITE NOT SPECIFIED 01/29/2018 [facility] W R10.32 LEFT LOWER QUADRANT PAIN 01/29/2018 [facility] W R31.9 HEMATURIA, UNSPECIFIED 01/30/2018 Rod Servin W 041.49 OTHER AND UNSPECIFIED ESCHERICHIA COLI [E. COLI] INFECTION IN CONDITIONS CLASSIFIED ELSEWHERE AND OF UNSPECIFIED SITE 01/30/2018 Rod Servin A 599.0 URINARY TRACT INFECTION, SITE NOT SPECIFIED 01/30/2018 Rod Servin W B96.20 UNSP ESCHERICHIA COLI THE CAUSE OF DISEASES CLASSD ELSWHR 01/30/2018 Rod Servin N39.0 URINARY TRACT INFECTION, SITE NOT SPECIFIED 01/05/2019 Randy Matthew W 959.11 OTHER INJURY OF CHEST WALL 01/05/2019 Randy Matthew S29.092A INJ MUSCLE AND TENDON OF BACK WALL OF THORAX, INIT ENCNTR 03/30/2020 HUMA ENGELP Ot O20.0 THREATENED 03/30/2020 HUMA ENGELP Ot R10.9 UNSPECIFIED ABDOMINAL PAIN 03/30/2020 HUMA ENGELP Ot Z3A.01 LESS THAN 8 WEEKS GESTATION OF Procedures There is no data. Results Test Result Range Urine Culture, Routine - 09/06/17 18:37 Urine Culture, Routine Note CULTURE, URINE - 09/06/17 18:37 Urine Culture, Routine Final report NRG Result 1 Staphylococcus aureus NRG Antimicrobial Susceptibility N [facility] - 01/29/18 06:28 Anion Gap 17 6-14 BUN 12 mg/dL 5-25 Calcium 9.6 mg/dL 8.3-10.4 Chloride 105 mmol/L 95-114 CO2 20 mEq/L 22-33 Creat 0.80 mg/dL 0.50-1.50 eGFR 85 mL/min/1.73m2 >59 Glucose 78 mg/dL 70-110 Osmo 284 280-295 Potassium 4.3 mmol/L 3.5-5.3 Sodium 138 mmol/L 134-148 Urine Culture - 01/29/18 06:28 PRELIM CULTURE RESULTS >100,000 Gram Negativ e Lactose Wire Weaver KASSIE / ID to Follow MEDIA PLATED Setup at 07:04 on 01/29/2018 CULTURE SOURCE clean catch reflex Urine Culture - 01/29/18 06:28 PRELIM CULTURE RESULTS >100,000 Gram Negativ e Lactose Wire Weaver KASSIE / ID to Follow MEDIA PLATED Setup at 07:04 on 01/29/2018 CULTURE SOURCE clean catch reflex Sensi - 01/29/18 06:28 FINAL CULTURE RESULTS Escherichia coli (Isolate 1) Ampicillin/Sulbactam >16/8 Ampicillin >16 Amoxicillin/K Clavulanate <=8/4 Ceftriaxone <=8 Ciprofloxacin <=1 Nitrofurantoin 64 Gentamicin <=4 Levofloxacin <=2 Trimethoprim/ Sulfamethoxazole >2/38 Tetracycline >8 Amikacin <=16 Aztreonam <=8 Ceftazidime <=1 Ceftazidime/K Clavulanate <=0.25 Cephalothin >16 Cefotaxime <=2 Cefotaxime/K Clavulanate <=0.5 Cefoxitin <=8 Cefazolin <=8 Cefepime <=8 Cefuroxime <=4 Ertapenem <=1 Imipenem <=4 Meropenem <=4 Piperacillin/Tazobactam <=16 Piperacillin >64 Tigecycline <=2 Tobramycin <=4 Drug Screen + ETOH - 01/05/19 14:53 Gis Mapping Technician Anayabrendon Montoya Donor ID By Photo ID Ethanol, Urine <10.00 mg/dL 20.00-80.00 Location [facility] Employee Reason For Test Post Accident Temperature [...] NRG STATEMENT OF ADEQUACY: NRG INTERPRETATION/RESULT: NRG BIODIESEL PLANT SUPERINTENDENT: NRG HPV mRNA E6/E7, SUREPATH VIAL Not Detected NOT DETECTED REVIEW BIODIESEL PLANT SUPERINTENDENT: NRG COMMENT NRG TESTOSTERONE, TOTAL (WOMEN, CHILDREN, [...] PREV. BX: NONE GIVEN NRG SOURCE: Cervix NRG STATEMENT OF ADEQUACY: NRG INTERPRETATION/RESULT: NRG BIODIESEL PLANT SUPERINTENDENT: NRG REVIEW BIODIESEL PLANT SUPERINTENDENT: LAINEY COMMENT NRG Urinalysis - 03/09/20 06:25 Icotest N/A Negative Urine Volume Urine Volume Insufficient ( <10mL) May Affect Microscopic Exam Urine Yeast No Yeast present Urine-Appearance Cloudy Clear Urine-Bacteria Trace Urine-Bilirubin Negative Negative Urine-Blood 3+ Negative Urine-Color Yellow Colorless-Lt. [place] ow Urine-Epithelial Cells 10-20/HPF Urine-Glucose Negative Negative Urine-Ketones Trace Negative Urine-Leukocytes Trace Negative Urine-Mucus 1+ Urine-Nitrite Negative Negative Urine-Other Urine Saved if Culture Need ed (48hrs from time of collection) Urine-pH 5.5 5-8.5 Urine-Protein 1+ Negative Urine-RBC TNTC Urine-Specific [place] 1.025 1.000-1 .030 Urine-WBC 0-2/HPF Urobilinogen 0.2 [...] NEGATIVE ng/mL <100 medMATCH Phenobarbital CONSISTENT NRG HCG, QUANTITATIVE - 03/25/20 08:43 [place], [place] [address] mIU/mL NRG Complete urinalysis with reflex to cultu [...] Status Pt. Type Provider Facility Loc./Unit Complaint [id number] 09/11/2017 20:07:00 Document Registration [id number] 03/28/2020 13:27:00 020 15:46:00 DIS Outpatient HUMA ENGEL [facility] ER CRAMPING;6 WKS [id number] 03/31/2020 16:40:00 ACT Outpatient [facility] [id number] 03/25/2020 08:40:00 Document Registration [id number] 03/18/2020 09:20:00 Document Registration [id number] 03/11/2020 14:00:00 Document Registration [id number] 03/09/2020 15:15:00 Document Registration [id number] 03/07/2020 14:30:00 Document Registration [id number] 03/02/2020 09:50:00 Document Registration [id number] 02/29/2020 10:20:00 Document Registration [id number] 02/03/2020 08:20:00 Document Registration [id number] 12/14/2019 15:15:00 Document Registration [id number] 11/24/2019 11:00:00 Document Registration [id number] 11/24/2019 10:00:00 Document Registration [id number] 11/16/2019 15:00:00 Document Registration [id number] 09/06/2017 18:10:00 Document Registration [id number] 03/30/2020 15:47:00 03/30/2020 23:59 :00 DIS Outpatient Manuel Hoang [id number] 03/09/2020 06:24:00 03/09/2020 23:59 :00 DIS Outpatient SUNSHINE, [place] [id number] 08/11/2019 15:22:00 08/11/2019 23:59: 00 DIS Outpatient SELF, PHY [id number] 06/23/2019 07:49:00 06/23/2019 23:59: 00 DIS Outpatient FOUZIA TURNER [id number] 01/05/2019 14:17:00 01/05/2019 15:40: 00 [id number] 08/12/2018 12:28:00 08/12/2018 23:59: 00 DIS Outpatient SELF, PHY [id number] 01/30/2018 07:56:00 01/30/2018 08:53: 00 DIS Outpatient Rod Servin [id number] 01/29/2018 06:17:00 01/29/2018 08:50: 00 DIS Outpatient SEJAL [facility] ER [id number] 08/20/2017 12:39:00 08/20/2017 23:59: 00 DIS Outpatient SELF, PHY [id number] 08/27/2016 13:59:00 08/27/2016 23:59: 00 [place] [id number] 01/29/2018 06:30:12 Document Registration [id number] 01/29/2018 06:17:00 Document Registration
[2020-04-02] MEDS ORDERED: fentaNYL INJECTION 100 MCG/2 ML AMP IVP ONE ×2 (09:30→11:15)
[2020-04-02 09:31] LABS: BASOPHILS # (AUTO) 0.1 10^3/uL (0.0-0.1); BASOPHILS % (AUTO) 1 % (0-10); EOSINOPHILS # (AUTO) 0.3 10^3/uL (0.0-0.3); EOSINOPHILS % (AUTO) 3 % (0-10); HEMATOCRIT 39 % (35-52); HEMOGLOBIN 13.1 G/DL (11.5-16.0); LYMPHOCYTES # (AUTO) 2.6 X 10^3 (1.0-4.0); LYMPHOCYTES % (AUTO) 27 % (12-44); MEAN CORPUSCULAR HEMOGLOBIN 30 PG (25-34); MEAN CORPUSCULAR HGB CONC 34 G/DL (32-36); MEAN CORPUSCULAR VOLUME 90 FL (80-99); MEAN PLATELET VOLUME 10.3 FL (7.4-10.4); MONOCYTES # (AUTO) 0.7 X 10^3 (0.0-1.0); MONOCYTES % (AUTO) 8 % (0-12); NEUTROPHILS # (AUTO) 5.9 X 10^3 (1.8-7.8); NEUTROPHILS % (AUTO) 62 % (42-75); PLATELET COUNT 343 10^3/uL (130-400); RED CELL DISTRIBUTION WIDTH 12.8 % (10.0-14.5); WHITE BLOOD COUNT 9.6 10^3/uL (4.3-11.0)
--- NOTE | 2020-04-02 09:39 | NUR ---
WARM BLANKET FOR LEGS, COOL CLOTH FOR HEAD, AND FLOWERS PLACED BESIDE PT FOR NAUSEA.
--- NOTE | 2020-04-02 09:40 | NUR ---
REPORT GIVEN TO CLAUDE DUE TO MYSELF HAVING A ONE ON ONE PT FOR A WHILE.
[2020-04-02] MEDS ORDERED: ONDANSETRON 4 MG/2 ML (SDV) Z0FRAN IVP ONE (09:45)
--- NOTE | 2020-04-02 10:25 | NUR ---
RESUMED CARE OF PT.
--- NOTE | 2020-04-02 10:29 | NUR ---
UP TO THE BATHROOM
--- NOTE | 2020-04-02 10:36 | NUR ---
PT COMPLAINS OF PAIN, NUASEA, AND FEELING LIKE SHE IS GOING TO PASS OUT. DR NOTIFIED.
[2020-04-02] MEDS ORDERED: NS IV 1000 ML 1,000 ML IV ONE (10:38)
[2020-04-02] MEDS ORDERED: PROMETHAZINE INJ 25 MG/ML (PHENERGAN) AMP IVP ONE (10:45)
--- NOTE | 2020-04-02 10:48 | ED GU-Female ---
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 STATES SHE IS 7-8 WEEKS GESTATION AND HAD LEVELS DRAWN TWO DAYS AGO WHICH HAD NOT RISEN. BELIEVES SHE IS HAVING A MISCARRIAGE. Nursing Sepsis Screen: No Definite Risk Source: patient, other (Dr. Joseph) Exam Limitations: no limitations History of Present Illness Date Seen by Provider: April 02, 2020 Time Seen by Provider: 09:24 Initial Comments This 29-year-old woman at approximately 8 weeks gestational age presents to the emergency room with complaints of vaginal bleeding, pelvic pain, and lighthead edness she has been monitored in the outpatient setting with the following hCG measurements: March [id number] 22,116 March [id number] HCG today is 6966. She is a patient of Dr. Hilliard. I contacted Dr. Joseph on- call for the [facility] who reports an ultrasound was performed at the clinic on March 30 showing no sac or pole. There were small amount of debris in the endometrial cavity. Ovaries and adnexa appear normal. I do not have an official copy of the ultrasound report. Patient reports bleeding started yesterday. She is having severe cramping. She feels lightheaded and is hyperventilating with an oxygen saturation of 100 percent during assessment. She has associated nausea. Allergies and Home Medications Allergies Coded Allergies: No Known Drug Allergies (Unverified , 10/07/09) Home Medications Citalopram Hydrobromide 20 Mg Tablet, 1 EACH PO DAILY, (Reported) Cyclobenzaprine Hcl 10 Mg Tablet, 1 EACH PO Q8HR PRN Prescribed by: JENNIFER DEAN on 10/19/12 173 Hydrocodone Bit/Acetaminophen 1 Each Tablet, 1-2 EACH PO Q6H PRN Prescribed by: JENNIFER DEAN on 10/19/12 173 Naproxen 500 Mg Tablet, 1 EACH PO BID PRN Prescribed by: JENNIFER DEAN on 10/19/12 173 Tramadol Hcl 50 Mg Tab, 50 MG PO Q4-6HOURS PRN FOR PAIN Prescribed by: JANIA TAMAYO on 10/23/12 1750 Patient Home Medication List Home Medication List Reviewed: Yes Review of Systems Review of Systems Constitutional: no symptoms reported EENTM: no symptoms reported Respiratory: see HPI Cardiovascular: no symptoms reported Gastrointestinal: see HPI Genitourinary: see HPI : Yes LMP: Dec 29, 2019 Musculoskeletal: no symptoms reported Skin: no symptoms reported Psychiatric/Neurological: See HPI Endocrine: No Symptoms Reported Hematologic/Lymphatic: No Symptoms Reported Past Wacvumb-Vndtok-Ehqvbx Hx Past Med/Social Hx: Reviewed Nursing Past Med/Soc Hx Patient Social History Alcohol Use: Denies Use Recreational Drug Use: No Smoking Status: Never a Smoker Recent Foreign Travel: No Contact w/Someone Who Travel: No Recent Infectious Disease Expo: No Recent Hopitalizations: No Seasonal Allergies Seasonal Allergies: No Past Medical History Surgeries: No Respiratory: No Cardiac: No Neurological: No Sexually Transmitted Disease: No HIV/AIDS: No Genitourinary: No Gastrointestinal: No Musculoskeletal: No Endocrine: No HEENT: No Cancer: No Psychosocial: No Integumentary: No Blood Disorders: No Physical Exam Vital Signs Vital Signs - First Documented 04/02/20 04/02/20 09:12 11:19 Temp 36.8 Pulse 99 Resp 36 B/P (MAP) 121/96 (104) Pulse Ox 99 O2 Delivery Room Air Capillary Refill : Less Than 3 Seconds Height, Weight, BMI Height: '" Weight: lbs. oz. kg; 40.00 BMI Method:Stated General Appearance: WD/WN, mild distress HEENT: normal ENT inspection Neck: normal inspection Cardiovascular: regular rate, rhythm, no edema, no murmur Respiratory: lungs clear, normal breath sounds, no respiratory distress, no accessory muscle use, other (hyperventilating) Gastrointestinal: normal bowel sounds, soft, tenderness (lower abdomen and most intense in the left adnexal region) Extremities: normal inspection, no pedal edema Neurologic/Psychiatric: backup engineer II-XII nml as tested, no motor/sensory deficits, alert, oriented x 3, other (anxious and hyperventilating) Skin: normal color, warm/dry Progress/Results/Core Measures Suspected Sepsis Recent Fever Within 48 Hours: No Infection Criteria Present: None New/Unexplained Altered Menta: No Sepsis Screen: No Definite Risk SIRS Temperature: Pulse: 99 Respiratory Rate: 36 Laboratory Tests 04/02/20 09:20: White Blood Count 9.6 Blood Pressure 121 /96 Mean: 104 Laboratory Tests 04/02/20 09:20: Platelet Count 343 Results/Orders Lab Results Laboratory Tests Test 04/02/20 09:20 Range/Units White Blood Count 9.6 4.3-11.0 10^3/uL Red Blood Count 4.32 L 4.35-5.85 10^6/uL Hemoglobin 13.1 11.5-16.0 G/DL Hematocrit 39 35-52 % Mean Corpuscular Volume 90 80-99 FL Mean Corpuscular Hemoglobin 30 25-34 PG Mean Corpuscular Hemoglobin Concent 34 32-36 G/DL Red Cell Distribution Width 12.8 10.0-14.5 % Platelet Count 343 130-400 10^3/uL Mean Platelet Volume 10.3 7.4-10.4 FL Neutrophils (%) (Auto) 62 42-75 % Lymphocytes (%) (Auto) 27 12-44 % Monocytes (%) (Auto) 8 0-12 % Eosinophils (%) (Auto) 3 0-10 % Basophils (%) (Auto) 1 0-10 % Neutrophils # (Auto) 5.9 1.8-7.8 X 10^3 Lymphocytes # (Auto) 2.6 1.0-4.0 X 10^3 Monocytes # (Auto) 0.7 0.0-1.0 X 10^3 Eosinophils # (Auto) 0.3 0.0-0.3 10^3/uL Basophils # (Auto) 0.1 0.0-0.1 10^3/uL Human Chorionic Gonadotropin, Quant 6966 H <5 MIU/ML My Orders Orders - CLARK CÁRDENAS MD Cbc With Automated Diff (04/02/20 09:24) Hcg,Quantitative (04/02/20 09:24) Ed Iv/Invasive Line Start (04/02/20 09:24) Ua Culture If Indicated (04/02/20 09:24) Fentanyl Injection (Sublimaze Injection (04/02/20 09:30) Abo Rh Type (04/02/20 09:26) Ondansetron Injection (Zofran Injectio (04/02/20 09:45) Ns Iv 1000 Ml (Sodium Chloride 0.9%) (04/02/20 10:38) Promethazine Injection (Phenergan Injec (04/02/20 10:45) Medications Given in ED Current Medications Medications Dose Ordered Sig/Yulia Route Start Time Stop Time Status Last Admin Dose Admin Fentanyl Citrate 50 mcg ONCE ONCE IVP 04/02/20 09:30 04/02/20 09:31 DC 04/02/20 09:30 50 MCG Fentanyl Citrate 50 mcg ONCE ONCE IVP 04/02/20 11:15 04/02/20 11:16 DC 04/02/20 11:19 50 MCG Ondansetron HCl 8 mg ONCE ONCE IVP 04/02/20 09:45 04/02/20 09:46 DC 04/02/20 09:51 8 MG Promethazine HCl 25 mg ONCE ONCE IVP 04/02/20 10:45 04/02/20 10:46 DC 04/02/20 10:45 25 MG Sodium Chloride 1,000 ml @ 0 mls/hr Q0M ONCE IV 04/02/20 10:38 04/02/20 10:39 DC 04/02/20 10:45 1,000 MLS/HR Vital Signs/I&O 04/02/20 04/02/20 09:12 11:19 Temp 36.8 Pulse 99 92 Resp 36 16 B/P (MAP) 121/96 (104) 98/74 Pulse Ox 99 100 O2 Delivery Room Air Capillary Refill : Less Than 3 Seconds Blood Pressure Mean: 104 Progress Note : Time: 10:49 Progress Note Patient was treated with Zofran and fentanyl. Blood type is O+, so patient does not need a RhoGAM injection. I discussed the ultrasound and hCG trends with Dr. Joseph. She recommends transfer to [place] where a repeat ultrasound can be performed since an ectopic has not been definitively ruled out. Patient reports persistent pain and nausea. She feels very lightheaded. She still appears to be hyperventilating with an oxygen saturation of 100 percent on room air. Sitting blood pressure is 106 systolic. We will give IV fluids and Phenergan. Transfer to the [facility] ER was accepted by Dr. Rangel. Departure Impression Primary Impression: Pelvic pain affecting Qualified Codes: O26.891 - Other specified related conditions, first trimester; R10.2 - Pelvic and perineal pain Additional Impressions: Vaginal bleeding during Hyperventilation Disposition: XFER SHT-TRM HOSP Condition: Stable Transfer Transfer Reason: Exceeds level of care Time Spoke to Accepting Phy: 10:25 Transfer Progress Notes Transfer to [facility] accepted by Dr. Rangel in the emergency room. Transfer Time: 11:17 Transfer Facility: [facility] [place] Method of Transfer: EMS Departure-Patient Inst. Referrals: KHUSHBU VERAS MD (PCP/Family) Primary Care Physician CLARK CÁRDENAS MD April 02, 2020 10:48
--- NOTE | 2020-04-02 11:10 | NUR ---
DR AND EMS IN ROOM. PT SADIE. STATES SHE FEELS LIKE SHE IS GOING TO PASS OUT.
[2020-04-02 11:19] VITALS: BP 98/74
== END 2020-04-02 11:17 | disposition short-term general hospital (02) ==
LOC: EDUNIT# 09:11 → ER 09:13
DX: O26.891 Other specified pregnancy related conditions, first trimester (principal); R10.2 Pelvic and perineal pain; O20.9 Hemorrhage in early pregnancy, unspecified; R06.4 Hyperventilation; Z3A.08 8 weeks gestation of pregnancy
CPT/HCPCS: 36415; 84702; 85025; 86900; 86901